=== PATIENT | male | born 1950 | race African-American/Black ===

== ENCOUNTER 2017-06-07 10:22 | Inpatient (IN) ==
--- NOTE | 2017-06-07 11:13 | CT Report ---
CT head/brain wo con Indication: Left facial droop Comparison: None Technique: Multiple axial tomographic images of the brain were obtained without the use of intravenous contrast. Findings: Midline structures are nondisplaced. There is no convincing evidence of acute intracranial hemorrhage . No convincing evidence of hydrocephalus. Moderate periventricular and subcortical hypoattenuation noted which is nonspecific but consistent with chronic microvascular ischemic change. Demyelinating process and vasculitis less likely considerations. Mild global volume loss present. There is subtle loss of rosado-white matter differentiation within the bilateral frontal location. Old lacunar infarcts involving the bilateral thalamus and left caudate. Age-indeterminate lacunar infarct within the lucas radiata of the left frontal lobe. Senescent mineralization of the bilateral basal ganglia. Atherosclerotic calcifications demonstrated. The visualized paranasal sinuses and bilateral mastoid air cells are essentially clear. IMPRESSION: No acute intracranial hemorrhage demonstrated. There is subtle loss of rosado-white matter differentiation within the bilateral frontal location. This could be related to motion artifact or sequela of recent infarct. Age-indeterminate lacunar infarct within the lucas radiata of the left frontal lobe. Consider MRI of the brain for further evaluation of these findings. Probable chronic microvascular ischemic change, volume loss, and old lacunar infarcts of bilateral thalami and left caudate. The CT exam was performed using one or more of the following dose reduction techniques: Automated exposure control, adjustment of the mA and/or kV according to patient size, or use of iterative reconstruction technique. PROCEDURE INTERPRETED AT [facility] DEPARTMENT OF RADIOLOGY Final Report Signed by: Dr James Melo
--- NOTE | 2017-06-07 11:26 | Emergency Department Note ---
Radha Del Cid Hilary, am scribing for, and in the presence of, Brendan Dial MD 10:53. Jayro Del Cid Phillip K, MD, personally performed the services described in this documentation, ascribed by Minerva Garcia in my presence, and it is both accurate and complete . Arrival - Arrival Chief Complaint: Neuro Stated Complaint: possible stroke,mouth drawed ED Nursing Triage Note: PT C/O FACIAL DROOP TO LEFT SIDE OF FACE SINCE LAST WEDNESDAY WITH SLURRED SPEECH. OBVIOUS FACIAL DROOP NOTED BUT SMILE AND RAISING OF EYE BROWS ARE SYMMETRICAL. PT DENIES WEAKNESS TO OTHER PARTS OF BODY. PT IS AMBULATORY. Mode of Arrival: Ambulatory Limitations: No Limitations Source: Patient, RN Notes Reviewed Time Seen by Provider: 06/07/17 10:45 - History of Present Illness HPI Narrative: Pt is a 67 y/o male presenting to the ED with c/o possible stroke which onset 6 days ago. Pt states that he took a nap with headphones in and woke up with with slurred speech and right facial droop. Pt denies any pain and states that his speech has gotten better but his face is still drooped. No other complaints or problems stated in the ED. Onset (ago): day(s) Consistency: constant Severity: mild Severity scale (1-10): 1 Allergies/Adverse Reactions: Allergies Allergy/AdvReac Type Severity Reaction Status Date / Time No Known Allergies Allergy Verified 06/07/17 10:30 Home Medications: Home Medications Medication Instructions Recorded Confirmed Type Aspirin EC Tab 81 mg PO DAILY #90 tablet 01/27/17 06/07/17 Rx Atenolol/Chlorthalidone 50-25 1 tablet PO DAILY #30 tablet 01/27/17 06/07/17 Rx [Tenoretic 50-25] Review of System - Review of System 12 point system: reviewed and no additional remarkable complaints except as stated - Review of System Constitutional: Absent: fever Head/Ears/Nose/Throat: Present: other (facial droop, slurred speech. ) Neurological: Present: other (possible stroke) Medical,Surgical,& Family Hx - Medical History Cardio: History of: Hypertension - Surgical History Neurologic Surgeries: Patient denies: Neurologic Surgery - Social History Smoking Status: Never smoker Frequency of Alcohol Use: None Type of Drug Use: None Exam Vital Signs: Vital Signs Temperature 97.0 F L 06/07/17 10:46 Pulse Rate 48 L 06/07/17 10:46 Respiratory Rate 18 06/07/17 10:46 Blood Pressure 166/99 06/07/17 10:46 O2 Sat by Pulse Oximetry 100 06/07/17 10:27 - General General appearance: alert, in no apparent distress - Head Head exam: Present: atraumatic, normocephalic - Eye Eye exam: Present: normal appearance, PERRL, EOMI - ENT ENT exam: Present: mucous membranes moist, TM's normal bilaterally. Absent: mucous membranes dry - Neck Neck exam: Present: full ROM, trachea midline. Absent: tenderness - Chest Chest inspection: Present: symmetric chest wall rise. Absent: tenderness - Respiratory Respiratory exam: Present: normal lung sounds bilaterally. Absent: respiratory distress - Cardiovascular Cardiovascular exam: Present: normal rhythm, bradycardia, normal heart sounds. Absent: regular rate, murmur, rubs, gallop - Abdominal Exam Abdominal exam: Present: soft, normal bowel sounds. Absent: distention, tenderness - Extremities Exam Extremities exam: Present: full ROM. Absent: tenderness, pedal edema - Back Exam Back exam: Present: full ROM. Absent: tenderness - Neurological Exam Neurological exam: Present: alert, oriented X3. Absent: CN II-XII intact ( Patient has what appears to be a partial right central facial nerve paralysis. At rest it appears to droop on the right side however when he smiles it appears symmetrical. There is no forehead involvement.), motor sensory deficit - Psychiatric Psychiatric exam: Present: normal affect, normal mood - Skin Skin exam: Present: warm, dry, intact, normal color. Absent: rash Course Course Narrative: Patient discussed with the hospitalist. Results - Labs CBC & BMP: 06/07/17 11:42 06/07/17 11:42 Lab Results: I have reviewed the patients labs Labs: Laboratory Tests 06/07/17 06/07/17 11:42 11:42 WBC 4.8 Hgb 10.6 L Hct 32.1 L Plt Count 253 Lymph # (Auto) 1.3 L Sodium 140 Potassium 4.3 Chloride 112 H Carbon Dioxide 20 L BUN 61 H Creatinine 4.50 H ALT 15 L Total Protein 7.2 Globulin 3.7 H Albumin/Globulin Ratio 0.9 L - EKG EKG results: interpreted by SABI (Sinus bradycardia, LVH with strain pattern) - Diagnostic Findings Procedure: CT: report reviewed by me (HEAD: No acute intracranial hemorrhage demonstrated. There is subtle loss of rosado-white matter differentiation within the bilateral frontal location. This could be related to motion artifact or sequela of recent infart. Age-indeterminate lacunar infarct within the lucas radiata of the left frontal lobe. Consider MRI of the brain for further evaluation of these findings. Probable chronic microvascular ischemic change, volume loss, and old lacunar infarcts of bilateral thalami and left caudate. 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
--- NOTE | 2017-06-07 11:51 | EKG Report ---
Stationary ECG Study [facility] ER Test Date: 06/07/2017 11:49:59 AM Pat Name: SERA PADILLA Department: Room: Gender: M Data Sciences Director: : 1950 Requested by: Brendan Ballard Order Number: [id number] Reading MD: MICHELLE COLÓN Intervals [place] Rate: 48 P: 49 AR: 199 QRS: -13 QRSD: 97 T: -56 QT: 487 QTc: 454 Interpretive Statements SINUS BRADYCARDIA at 48 bpm LEFT VENTRICULAR HYPERTROPHY AND ST-T CHANGE EARLY REPOLARIZATION Electronically Signed On 06-08-17 08:10:23 CDT by MICHELLE COLÓN [email or web address]
[2017-06-07 12:03] LABS: Basophils % 0.8 % (0.0-0.8); Eosinophils # 0.1 10*3/uL (0.0-0.87); Eosinophils % 2.1 % (0.00-10.9); Hematocrit 32.1 VOL% (42.0-52.0); Hemoglobin 10.6 GM/DL (14.0-18.0); Immature Granulocytes % 0.4 %; Immature Granulocytes Absolute 0.02 #; Lymphocytes # 1.3 10*3/uL (1.4-4.0); Lymphocytes % 27.7 % (21.2-54.2); Mean Corpuscular Hemoglobin 30 PG (27-34); Mean Corpuscular Volume 90.9 FL (87-102); Mean Platelet Volume 10.5 FL (9.6-12.0); Monocytes # 0.5 10*3/uL (0.11-0.8); Monocytes % 10.3 % (1.7-12.7); Neutrophils # 2.8 10*3/uL (1.4-7.4); Neutrophils % 58.7 % (38.7-73.9); Platelet Count 253 T/CUMM (130-400); Red Blood Count 3.53 MC/CUMM (3.8-5.5); Red Cell Distribution Width 14.3 % (9.3-17.3); White Blood Count 4.8 T/CUMM (4-12)
[2017-06-07 12:35] LABS: Alanine Aminotransferase 15 U/L (16-61); Albumin 3.5 G/DL (3.4-5.0); Alkaline Phosphatase 82 U/L (45-117); Aspartate Amino Transferase 18 U/L (0-37); Bilirubin,Total < 0.39 MG/DL (0.2-1.0); Blood Urea Nitrogen 61 MG/DL (7-18); Calcium 8.7 MG/DL (8.5-10.1); Glucose 85 MG/DL (74-106); Osmolality,Calculated 294.4 MOS/KG (273-304); Potassium 4.3 MMOL/L (3.5-5.1); Sodium 140 MMOL/L (136-145); Total Protein 7.2 G/DL (6.4-8.3)
--- NOTE | 2017-06-07 14:23 | Hospitalist History & Physical ---
<Ra Jain - Last Filed: 06/07/17 14:36> Assessment and Plan - Time spent with patient Time spent with patient: Greater than 30 minutes (1) Transient cerebral ischemia Status: Acute Assessment and plan: Head CT shows lacunar infarct of indeterminate age. Patient is already on aspirin. Will obtain an MRI of the brain and head. Neurology has been consulted. Current Visit: Yes (2) Hypertension Status: Acute Assessment and plan: Continue home medications. Add as needed antihypertensives. Current Visit: Yes (3) Acute kidney injury Status: Acute Assessment and plan: Gentle IV fluids. Current Visit: Yes History of Present Illness Chief complaint: CVA History of present illness: Mr. Espinoza is a 67 year old male with past medical history significant for hypertension who comes in today complaining of facial droop and right-sided weakness with onset last Wednesday. Patient reports that he first noticed these changes last Wednesday or Wednesday when he believed to have had a stroke. He states that he does not have a PCP but does take medication for hypertension that he received in the ED approximately 2 months ago. Patient states that he has no residual effects from this perceived stroke outside of the right-sided facial droop and the right arm weakness. On exam, the patient does have noticeable facial droop and his right hand is slightly weaker than the left. His speech is audible and intelligible though it is a bit slurred. Patient denies headache, syncopal episodes, palpitations, chest pain, nausea vomiting, numbness or tingling. His CT shows evidence of lacunar infarct of indeterminate age. Lab work at the time of admission is remarkable for BUN 61 creatinine 4.5. Case has been discussed with Dr. Allen and the patient will be admitted for further evaluation and treatment. We will consult neurology. Patient is a full code. Home meds have been reviewed and reconciled. Home Medications Medication Instructions Recorded Confirmed Type Aspirin EC Tab 81 mg PO DAILY #90 tablet 01/27/17 06/07/17 Rx Atenolol/Chlorthalidone 50-25 1 tablet PO DAILY #30 tablet 01/27/17 06/07/17 Rx [Tenoretic 50-25] Allergies Allergy/AdvReac Type Severity Reaction Status Date / Time No Known Allergies Allergy Verified 06/07/17 10:30 Medical,Surgical,& Family Hx - Medical History Cardio: History of: Hypertension Neurology: History of: TIA Rheumatology: History of;: Gout - Surgical History Neurologic Surgeries: Patient denies: Neurologic Surgery Abdominal Surgeries: Patient denies: Abdominal Surgery Reproductive Surgeries: Patient denies;: Genitourinary Surgery - Family History Family History: Reports;: Family Cancer (Dad), Family Diabetes (Sister, mom, niece), Family Heart Disease (mom, sister), Family Stroke (niece) - Social History Smoking Status: Never smoker Frequency of Alcohol Use: Frequently Type of Drug Use: None Exam - Constitutional Vitals: Period Temp Pulse Resp BP Sys/Rodriguez Pulse Ox Last 24 Hr 97.0 F-97.5 F 48-127 18-18 166-183/95-99 98-100 Results - Labs CBC & BMP: 06/07/17 11:42 06/07/17 11:42 Quality Measures - Stroke Onset of Symptoms Date: 06/02/17 Onset of Symptoms Time: 18:00 <Dori Allen - Last Filed: 06/07/17 16:10> History of Present Illness History of present illness: Mr. Espinoza is a 67 year old male with a history of HTN snd a family of stroke who presents with right sided facial weakness and swallowing problems.Carotid dopplers showed Diffuse calcified atheromatous disease. 60-79% diameterstenosis right ICA origin. No hemodynamically significant stenosis on the left. Patient was seen, examined and discussed with the DRAY DRIVER. Plan Cardiac enzymes Echo ASA, statins Neuro, PT/ST/OT consult UA Continue current stroke protocol. IVF renal USS BMP in am Exam - Constitutional Vitals: Period Temp Pulse Resp BP Sys/Rodriguez Pulse Ox Last 24 Hr 97.0 F-97.5 F 48-127 18-18 166-183/95-99 98-100 Results - Labs CBC & BMP: 06/07/17 11:42 06/07/17 11:42
[2017-06-07] MEDS ORDERED: LABETALOL 20 MG/4 ML SYRINGE IV PRN (14:27)
[2017-06-07 14:57] LABS: Cholesterol 175 MG/DL (50-200); HDL Cholesterol 51 MG/DL (40-60); Risk Ratio 3.43; Triglycerides 112 MG/DL (2-150); Troponin I Only < 0.015 NG/ML (0.00-0.045); VLDL CHOLESTEROL 22.4 MG/DL
[2017-06-07] MEDS: ASPIRIN EC 81 MG TABLET PO SCH (15:34)
[2017-06-07] MEDS: ATENOLOL/CHLORTHALIDONE 50-25 MG TABLET PO SCH (15:34)
[2017-06-07] MEDS: ENOXAPARIN 30 MG/0.3 ML SYRINGE SUBCUT SCH (15:34)
--- NOTE | 2017-06-07 15:56 | Ultrasound Report ---
US carotid duplex BI Indication: Stroke. CAROTID ULTRASOUND Comparison: None. Findings: Grayscale, color Doppler and pulsed Doppler interrogation of the carotid and vertebral arteries performed. Severity of stenosis based on flow velocity measurements using NASCET criteria. Distal right ICA diameter: 5.0 mm Distal left ICA diameter: 3.4 mm Peak systolic flow velocities in centimeters per second are as follows: Right: CCA: 68 cm/s Proximal ICA: 83 Distal ICA: 135 ICA/CCA ratio: 2.0 Left: CCA: 66 cm/s Proximal ICA: 48 Distal ICA: 89 ICA/CCA ratio: 1.3 External carotid arteries: Both are patent with antegrade flow. Vertebral arteries: Both are patent with antegrade flow. Grayscale and color Doppler images: Scattered and significant areas of focal plaque deposition identified, with normal color Doppler flow present. Pulse Doppler waveform interrogation: No significant spectral broadening. Impression: Diffuse calcified atheromatous disease. 60-79% diameter stenosis right ICA origin. No hemodynamically significant stenosis on the left. PROCEDURE INTERPRETED AT [facility] DEPARTMENT OF RADIOLOGY Final Report Signed by: Eleazar Raman M.D.
--- NOTE | 2017-06-07 17:15 | Magnetic Resonance Report ---
History: Facial droop. Right-sided weakness Date: 06/07/2017 Study: MRI brain without contrast Comparison exam: No previous MRI brain available for comparison The brain was imaged in 3 planes on the 1.2 Miriam open magnet without IV contrast, to include diffusion, T2, FLAIR, gradient echo, and T1-weighted sequences. No IV contrast was given. The exam was performed on the day of admission. The ventricles are midline in position without evidence of hydrocephalus. There is no Chiari I malformation. There is no gross mediastinal mass. There is a 10 to 12 mm area of restricted diffusion compatible with acute ischemia in the lucas radiata on the left, compatible with acute ischemia between 6 hours and 4 days old. There is no acute hemorrhage. There are some scattered punctate foci of hypointense gradient echo signal compatible with hemosiderin from scattered microhemorrhage of a remote nature bilaterally in the bethany, thalami, and globus pallidus regions, as well as in the lucas radiata bilaterally. There is no area of mass effect. There is a moderate amount of patchy increased FLAIR and T2 signal in the periventricular white matter without mass effect compatible with changes of small vessel disease. Moderate changes of small vessel disease are also noted in the bethany. There are some areas of chronic lacunar infarction in the thalami and putamen bilaterally. There is no extra-axial hematoma. There is no obvious cerebellopontine angle mass. There is a normal flow void in the superior sagittal sinus. There is no gross flow abnormality in the [place] of area. Impression: Area of acute ischemia in the lucas radiata on the left. No acute hemorrhage. Evidence of remote scattered microhemorrhage in the bethany and basal ganglia regions as well as in the lucas radiata bilaterally. PROCEDURE INTERPRETED AT [facility] DEPARTMENT OF RADIOLOGY Final Report Signed by: Dr. Deidre Salcido
[2017-06-07] MEDS: hydrALAZINE 10 MG TABLET PO PRN (18:05)
[2017-06-07] MEDS: SODIUM CHLORIDE 0.45% 1,000 ML IV SCH (18:05)
--- NOTE | 2017-06-07 20:36 | Ultrasound Report ---
US renal Bilateral Indication: Renal failure. Comparison: None. Technique: Using a transcutaneous probe, multiple grayscale and color Doppler images of the right and left kidney were captured and stored. Findings: The right kidney measures 9.6 cm in length. The left kidney measures 9.5 cm. in length. The left kidney demonstrates rounded to slightly oval areas of anechoic to hypoechoic echotexture within well-defined wall compatible with cysts. The largest of these measures 1.4 x 1.7 x 1.1 cm. Additionally, each of the renal cortices is hyperechoic and atrophy of the renal cortex is suggested bilaterally. Impression: 1. At least one, probably multiple left renal cysts are present. 2. Each renal cortex appears atrophied and demonstrates hyperechoic echotexture which is a nonspecific finding but can reflect sequelae of medical renal disease. 06/07/2017 8:32 PM PROCEDURE INTERPRETED AT [facility] DEPARTMENT OF RADIOLOGY Final Report Signed by: Dr. Vasiliy Olivera
[2017-06-07] MEDS ORDERED: ATORVASTATIN 40 MG TABLET PO SCH (21:00)
[2017-06-07 22:55] LABS: Apearance,Urine CLEAR (Clear); Bilirubin,Urine Negative (Negative); Blood, Urine Small mg/dL (Negative); Glucose,Urine (UA) Negative (Negative); Ketones,Urine Negative (Negative); Mucus,Urine Occasional /LPF (Occasional); Nitrite,Urine Negative (Negative); Protein,Urine 30 MG/DL; RBC,Urine 1 /HPF (0-4); Renal Epithelial Cells,Urine Occasional /HPF (<1); Urine Color Straw (Yellow); Urine Urobilinogen < 2.0 EU/DL (0.2-1.0); WBC,Urine <1 /HPF (0-6)
[2017-06-08 05:03] LABS: Basophils % 0.6 % (0.0-0.8); Eosinophils # 0.1 10*3/uL (0.0-0.87); Eosinophils % 2.9 % (0.00-10.9); Hematocrit 32.6 VOL% (42.0-52.0); Hemoglobin 10.7 GM/DL (14.0-18.0); Immature Granulocytes % 0.4 %; Immature Granulocytes Absolute 0.02 #; Lymphocytes # 1.7 10*3/uL (1.4-4.0); Lymphocytes % 34.4 % (21.2-54.2); Mean Corpuscular HGB Conc 32.8 GM/DL (32-36); Mean Corpuscular Hemoglobin 30 PG (27-34); Mean Corpuscular Volume 91.3 FL (87-102); Mean Platelet Volume 11.1 FL (9.6-12.0); Monocytes # 0.5 10*3/uL (0.11-0.8); Neutrophils # 2.5 10*3/uL (1.4-7.4); Neutrophils % 51.7 % (38.7-73.9); Platelet Count 265 T/CUMM (130-400); Red Blood Count 3.57 MC/CUMM (3.8-5.5); Red Cell Distribution Width 14.5 % (9.3-17.3); White Blood Count 4.9 T/CUMM (4-12)
[2017-06-08 05:16] LABS: Calcium 9.1 MG/DL (8.5-10.1); Osmolality,Calculated 291.4 MOS/KG (273-304); Potassium 4.3 MMOL/L (3.5-5.1)
[2017-06-08] MEDS: SODIUM CHLORIDE 0.45% 1,000 ML IV SCH (09:23)
[2017-06-08] MEDS: ASPIRIN EC 81 MG TABLET PO SCH (09:26)
[2017-06-08] MEDS: ATENOLOL/CHLORTHALIDONE 50-25 MG TABLET PO SCH (09:28)
--- NOTE | 2017-06-08 11:04 | Hospitalist Progress Note ---
Assessment and Plan (1) Acute ischemic stroke Status: Acute Assessment and plan: with right facial weakness and swallowing difficulties. MRI showed: Area of acute ischemia in the lucas radiata on the left. No acute hemorrhage. Evidence of remote scattered microhemorrhage in the bethany and basal ganglia regions as well as in the lucas radiata bilaterally. Carotid showed :Diffuse calcified atheromatous disease. 60-79% diameter stenosis right ICA origin. No hemodynamically significant stenosis on the left. Plan continue with ASA and statin Neuro to see Vascular has also been consulted. Continue PT/OT/ST Patient doesnt mind going to [facility] from here- plant senior manager consult Current Visit: Yes (2) Carotid stenosis, right Status: Acute Assessment and plan: Doppler showed :Diffuse calcified atheromatous disease. 60-79% diameter stenosis right ICA origin. No hemodynamically significant stenosis on the left. plan CTA of head and neck Vascular consult ASA plus Statin Current Visit: Yes (3) Hypertension Status: Acute Assessment and plan: will monitor and control Current Visit: Yes (4) Acute kidney injury Status: Acute Assessment and plan: Improving with IVF BMP in am continue to avoid nephrotoxics Current Visit: Yes (5) History of gout Status: Acute Assessment and plan: will get uric acid level Current Visit: Yes Hospitalist: Subjective Interval history: Patient seen this am, No new complaints. MRI showed Area of acute ischemia in the lucas radiata on the left.Carotid doppler showed 60-79% diameter stenosis right ICA origin. Exam - Constitutional Vitals: Period Temp Pulse Resp BP Sys/Rodriguez Pulse Ox Last 24 Hr 96.5 F-97.6 F 51-127 18-22 147-186/77-97 94-98 General appearance: no acute distress - Head Head exam: Present: normal inspection - Respiratory Respiratory exam: Present: clear to auscultation bilaterally - Cardiovascular Cardiovascular exam: Present: regular rate and rhythm - GI/Abdominal GI/Abdominal exam: Present: normal bowel sounds - Extremities Exam Extremities exam: Present: normal inspection - Neurological Exam Neurological exam: Present: alert, oriented X3, other (right facial weakness) Results - Labs CBC & BMP: 06/08/17 03:13 06/08/17 03:13 Lab Results: I have reviewed the past 24 hour labs Quality Measures - Stroke Onset of Symptoms Date: 06/02/17 Onset of Symptoms Time: 18:00
--- NOTE | 2017-06-08 14:41 | Neurology Consult Note ---
History of Present Illness History of present illness: Mr. Espinoza is a 67 year old right-handed -Burm[place] gentleman with past medical history significant for hypertension who was admitted to [facility] with complaints of right facial droop and right-sided weakness with onset last Wednesday. Patient reports that he first noticed these changes last Wednesday when he believed to have had a stroke. He states that he does not have a PCP but does take medication for hypertension that he received in the ED approximately 2 months ago. Patient denies headache, syncopal episodes, palpitations, chest pain, nausea vomiting, numbness or tingling. MRI of the brain revealed acute infarct in the left basal ganglia/subcortical region. Lab work at the time of admission is remarkable for BUN 61 creatinine 4.5. Patient has speech difficulties which are mild too. He is able to get up and walk by himself. Carotid ultrasound revealed right ICA stenosis of 50-79%. Lipid panel is within normal limits Home Medications Medication Instructions Recorded Confirmed Type Aspirin EC Tab 81 mg PO DAILY #90 tablet 01/27/17 06/07/17 Rx Atenolol/Chlorthalidone 50-25 1 tablet PO DAILY #30 tablet 01/27/17 06/07/17 Rx [Tenoretic 50-25] Allergies Allergy/AdvReac Type Severity Reaction Status Date / Time No Known Allergies Allergy Verified 06/07/17 10:30 12 point system: reviewed and no additional remarkable complaints except as stated Medical,Surgical,& Family Hx - Medical History Cardio: History of: Hypertension Psychological: History of: Schizophrenia Neurology: History of: TIA Rheumatology: History of;: Gout - Surgical History Neurologic Surgeries: Patient denies: Neurologic Surgery Abdominal Surgeries: Patient denies: Abdominal Surgery Reproductive Surgeries: Patient denies;: Genitourinary Surgery - Family History Family History: Reports;: Family Cancer (Dad), Family Diabetes (Sister, mom, niece), Family Heart Disease (mom, sister), Family Stroke (niece) - Social History Smoking Status: Never smoker Frequency of Alcohol Use: Frequently Type of Drug Use: None Exam - Constitutional Vitals: Period Temp Pulse Resp BP Sys/Rodriguez Pulse Ox Last 24 Hr 96.5 F-97.6 F 51-62 20-22 147-186/77-114 94-98 Exam: GENERAL: Patient is in no acute distress. NECK: Neck is supple. There is no JVD. No carotid bruits present. No thyroid masses. CVS: First and second heart sounds are normal. There is no S3 present. Regular rate and rhythm. RESPIRATORY: Lungs are clear to auscultation without any rales or rhonchi. ABDOMEN: Soft and non-tender. Bowel sounds are present. There is no hepatosplenomegaly. EXT: There is no palpable edema. Peripheral pulses are present. Skin: No rashes Central Nervous system: General: Alert, awake and Oriented Speech: Fluent with mild dysarthria Comprehension: Intact and normal Facial expressions: Normal Cranial Nerves: CN1/Olfactory: Normal CN II/ Optic: Normal, Visual Puente unreliable CN III, and : CONSUELO & EOMI CN V: Normal & intact CN VII: Right central facial weakness CNVIII: Normal CN XI/X/XI/XII: Intact and Normal Motor: Bulk and Tone is normal. Strength in the right 4/5 Strength in the left 5/5 Sensory: Grossly intact for all the modalities of PP, LT and temp sense Reflexes: 1+ and symmetrical Cerebellar function: Normal finger to nose and heel to guo testing. Toes: Equivocal Gait: Able to get up and walk without assistance. Results - Labs CBC & BMP: 06/08/17 03:13 06/08/17 03:13 Assessment and Plan (1) Acute CVA (cerebrovascular accident) Status: Acute Assessment and plan: Continue aspirin for now Lipitor 10 mg p.o. daily Schedule outpatient PT, OT and ST Current Visit: Yes (2) Carotid stenosis, right Status: Acute Assessment and plan: CT angiogram carotid Thank you for the consult Current Visit: Yes Specialty Discharge - Follow Up or Referrals Follow up with: Dominique Sky MD [Physician] - 2 Weeks Eladio Jones MD [Physician] - 1 Month
[2017-06-08] MEDS: ENOXAPARIN 30 MG/0.3 ML SYRINGE SUBCUT SCH (14:58)
--- NOTE | 2017-06-08 17:47 | Vascular Surgery Consult Note ---
History of Present Illness Chief complaint: cva with carotid stenosis History of present illness: Mr. Espinoza is a 67 year old male Mr. Espinoza is a 67-year-old man admitted with a left lacunar cerebrovascular accident but had delayed coming to the hospital for approximately 6 days. He is stable and getting along reasonably well and an ultrasound is indicated a moderate right carotid cyst but no significant left carotid stenosis. Patient has no previous histories of these but has untreated hypertension up until recently. At this point I agree with Dr. Sanchez much recommendation for CT angiogram and I will review that and determine if there is any significant carotid disease that she that would require intervention Home Medications Medication Instructions Recorded Confirmed Type Aspirin EC Tab 81 mg PO DAILY #90 tablet 01/27/17 06/07/17 Rx Atenolol/Chlorthalidone 50-25 1 tablet PO DAILY #30 tablet 01/27/17 06/07/17 Rx [Tenoretic 50-25] Allergies Allergy/AdvReac Type Severity Reaction Status Date / Time No Known Allergies Allergy Verified 06/07/17 10:30 Medical,Surgical,& Family Hx - Medical History Cardio: History of: Hypertension Psychological: History of: Schizophrenia Neurology: History of: TIA Rheumatology: History of;: Gout - Surgical History Neurologic Surgeries: Patient denies: Neurologic Surgery Abdominal Surgeries: Patient denies: Abdominal Surgery Reproductive Surgeries: Patient denies;: Genitourinary Surgery - Family History Family History: Reports;: Family Cancer (Dad), Family Diabetes (Sister, mom, niece), Family Heart Disease (mom, sister), Family Stroke (niece) - Social History Smoking Status: Never smoker Frequency of Alcohol Use: Frequently Type of Drug Use: None Exam - Constitutional Vitals: Period Temp Pulse Resp BP Sys/Rodriguez Pulse Ox Last 24 Hr 96.7 F-97.6 F 52-62 18-22 147-186/77-114 94-99 Quality Measures - Stroke Onset of Symptoms Date: 06/02/17 Onset of Symptoms Time: 18:00 Results - Labs CBC & BMP: 06/08/17 03:13 06/08/17 03:13 Specialty Discharge - Follow Up or Referrals Follow up with: Eladio Jones MD [Physician] - 1 Month Dominique Sky MD [Physician] - 2 Weeks
--- NOTE | 2017-06-08 19:01 | Nephrology Consult Note ---
History of Present Illness Chief complaint: Chronic kidney disease History of present illness: Mr. Espinoza is a 67 year old male patient with history of hypertension is now status post CVA with right-sided weakness serum creatinine is noted to be 3.8. Nephrology is been consulted for renal issues. Renal ultrasound today showed some increased echotexture. The gentleman denies history of NSAID use. There is been no dysuria or hematuria reported. Carotid Dopplers showed diffuse atherosclerotic processes. Home Medications Medication Instructions Recorded Confirmed Type Aspirin EC Tab 81 mg PO DAILY #90 tablet 01/27/17 06/07/17 Rx Atenolol/Chlorthalidone 50-25 1 tablet PO DAILY #30 tablet 01/27/17 06/07/17 Rx [Tenoretic 50-25] Allergies Allergy/AdvReac Type Severity Reaction Status Date / Time No Known Allergies Allergy Verified 06/07/17 10:30 Medical,Surgical,& Family Hx - Medical History Cardio: History of: Hypertension Psychological: History of: Schizophrenia Neurology: History of: TIA Rheumatology: History of;: Gout - Surgical History Neurologic Surgeries: Patient denies: Neurologic Surgery Abdominal Surgeries: Patient denies: Abdominal Surgery Reproductive Surgeries: Patient denies;: Genitourinary Surgery - Family History Family History: Reports;: Family Cancer (Dad), Family Diabetes (Sister, mom, niece), Family Heart Disease (mom, sister), Family Stroke (niece) - Social History Smoking Status: Never smoker Frequency of Alcohol Use: Frequently Type of Drug Use: None Review of Systems Constitutional: fatigue, no fever(s) Respiratory: no dyspnea, no hemoptysis Gastrointestinal: no abdominal pain, no bloating Exam - Vital Signs Vital signs: Period Temp Pulse Resp BP Sys/Rodriguez Pulse Ox Last 24 Hr 96.7 F-97.6 F 52-62 18-22 147-186/77-114 94-99 - General Appearance General appearance: well-developed, well-nourished EENT: ATNC Neck: supple Respiratory: clear Cardiology: no edema, regular rate, regular rhythm Gastrointestinal: normoactive bowel sounds Neurologic: alert and oriented x3, facial droop (Dysarthria) Musculoskeletal: no clubbing Psychiatric: mood/affect appropriate Results - Labs CBC & BMP: 06/08/17 03:13 06/08/17 03:13 Assessment and Plan (1) Hypertension Status: Chronic Current Visit: Yes Qualifiers: Hypertension type: essential hypertension Qualified Code(s): I10 - Essential (primary) hypertension (2) Acute kidney injury Status: Acute Assessment and plan: Renal ultrasound noted. Avoid nephrotoxic agents. Daily BMP. Strict I's and O's. Current Visit: Yes (3) Carotid stenosis Status: Acute Current Visit: Yes (4) History of gout Status: Chronic Current Visit: Yes (5) Acute CVA (cerebrovascular accident) Status: Acute Current Visit: Yes Specialty Discharge - Follow Up or Referrals Follow up with: Eladio Jones MD [Physician] - 1 Month Dominique Sky MD [Physician] - 2 Weeks
--- NOTE | 2017-06-08 20:32 | ECHO Report ---
Franck Espinoza Exam Date: 06/08/2017 09:28 Referring Physician: Technologist: Baylee Steel MARTHA Age: 67 Ht (in): 73 Wt (lb): 181 Gender: M Exam Location: [facility] Echo Indications: Transient cerebral ischemia, Essential (primary) hypertension, Acute kidney injury, Right sided weakness, Facial droop BP: 147 / 77 HR: 51 Rhythm: Sinus Technical Quality: Good IMPRESSIONS Normal LV systolic function, ejection fraction 60%. Grade 1/4 diastolic dysfunction. Mild mitral, aortic, tricuspid and pulmonic regurgitation. No clear evidence of valvular vegetation or cardiac thrombus. MEASUREMENTS (Male / Female) Normal Values 2D ECHO LV Diastolic Diameter PLAX 5.1 cm 4.2 - 5.9 / 3.9 - 5.3 cm LV Systolic Diameter PLAX 2.9 cm LV Fractional Shortening PLAX 42.9 % IVS Diastolic Thickness 0.9 cm 0.6 - 1.0 / 0.6 - 0.9 cm LVPW Diastolic Thickness 0.9 cm 0.6 - 1.0 / 0.6 - 0.9 cm RV Internal Dim ED PLAX 4.1 cm Aortic Root Diameter 3.6 cm LA Systolic Diameter LX 3.3 cm 3.0 - 4.0 / 2.7 - 3.8 cm DOPPLER TR Peak Velocity 257.0 cm/s TR Peak Gradient 26.4 mmHg FINDINGS Left Ventricle Normal left ventricular cavity size. Normal left ventricular wall thickness. Left ventricular ejection fraction is estimated at 60 %. Right Ventricle The right ventricle is normal in size and function. Right Atrium The right atrium is normal in size. Left Atrium The left atrium is normal in size. Mitral Valve Mildly thickened mitral valve. Mild mitral annular calcification. Mild mitral valve regurgitation. Aortic Valve Mild aortic valve sclerosis. Mild aortic valve regurgitation. Tricuspid Valve Morphologically normal tricuspid valve. Mild tricuspid valve regurgitation. Tricuspid regurgitation velocities suggest a PAP of 36 mmHg. Pulmonic Valve Morphologically normal pulmonic valve. Mild pulmonary valve regurgitation. Pericardium Normal pericardium without effusion. Aorta Normal ascending aorta dimension. Silvia Anderson MD (Electronically Signed) Final Date: 08 June 2017 20:30
[2017-06-08] MEDS: ACETYLCYSTEINE 600 MG CAPSULE PO SCH (21:19)
[2017-06-08] MEDS: ATORVASTATIN 10 MG TABLET PO SCH (21:19)
[2017-06-09 06:36] LABS: Basophils % 0.9 % (0.0-0.8); Eosinophils # 0.1 10*3/uL (0.0-0.87); Eosinophils % 2.7 % (0.00-10.9); Hemoglobin 10.2 GM/DL (14.0-18.0); Immature Granulocytes % 0.2 %; Immature Granulocytes Absolute 0.01 #; Lymphocytes # 1.4 10*3/uL (1.4-4.0); Mean Corpuscular HGB Conc 32.9 GM/DL (32-36); Mean Corpuscular Hemoglobin 30 PG (27-34); Mean Corpuscular Volume 91.4 FL (87-102); Mean Platelet Volume 10.5 FL (9.6-12.0); Monocytes # 0.5 10*3/uL (0.11-0.8); Monocytes % 11.6 % (1.7-12.7); Neutrophils # 2.3 10*3/uL (1.4-7.4); Neutrophils % 52.6 % (38.7-73.9); Platelet Count 242 T/CUMM (130-400); Red Blood Count 3.39 MC/CUMM (3.8-5.5); Red Cell Distribution Width 14.4 % (9.3-17.3); White Blood Count 4.4 T/CUMM (4-12)
[2017-06-09 07:12] LABS: Calcium 8.3 MG/DL (8.5-10.1); Osmolality,Calculated 292.4 MOS/KG (273-304); Potassium 4.2 MMOL/L (3.5-5.1)
--- NOTE | 2017-06-09 08:45 | Physician Query Form ---
CLICK EDIT DOCUMENT TO SELECT QUERY ANSWER --> OK --> SIGN Claudia Olivera RN, CCDS Certified Clinical Certified Wellness Program Coordinator W) [phone] (f) [phone] [email or web address] PROVIDERS: Make your selection(s) from the choices in EACH section by typing an "x" and enter comments in the comment section. Please use your independent medical judgment in providing your response. This request does not imply that any particular answer is desired or expected. CLINICAL INDICATORS: (Providers should not edit this section) The medical record indicates that the patient was admitted with a CVA, "MRI showed Area of acute ischemia in the lucas radiata on the left. Carotid doppler showed 60-79% diameter stenosis right ICA origin". Based on the above, could you clarify the appropriate diagnosis, if significant , that supports the above abnormalities and additional evaluation, monitoring, and/or treatment rendered: (x ) Stroke is due to " 60-79% diameter stenosis right ICA origin" ( ) Stroke is unrelated to " 60-79% diameter stenosis right ICA origin" ( ) Other, please specify: ( ) Clinically unable to determine COMMENTS: PLEASE ALSO DOCUMENT RESPONSE IN PROGRESS NOTES AND/OR DISCHARGE SUMMARY Use of terms such as suspected, likely, or probable (associated with a specific diagnosis that is being evaluated, monitored, or treated as if it exists) are acceptable and can be restated in the discharge summary if not ruled out. MTDD
[2017-06-09] MEDS: ENOXAPARIN 30 MG/0.3 ML SYRINGE SUBCUT SCH (09:15)
[2017-06-09] MEDS: ACETYLCYSTEINE 600 MG CAPSULE PO SCH ×2 (09:15→21:40)
[2017-06-09] MEDS: ASPIRIN EC 81 MG TABLET PO SCH (09:15)
[2017-06-09] MEDS: ATENOLOL/CHLORTHALIDONE 50-25 MG TABLET PO SCH (09:15)
[2017-06-09] MEDS: hydrALAZINE 10 MG TABLET PO PRN (09:17)
--- NOTE | 2017-06-09 11:33 | Hospitalist Progress Note ---
Assessment and Plan (1) Acute ischemic stroke Status: Acute Assessment and plan: with right facial weakness and swallowing difficulties. MRI showed: Area of acute ischemia in the lucas radiata on the left. No acute hemorrhage. Evidence of remote scattered microhemorrhage in the bethany and basal ganglia regions as well as in the lucas radiata bilaterally. Carotid showed :Diffuse calcified atheromatous disease. 60-79% diameter stenosis right ICA origin. No hemodynamically significant stenosis on the left. [facility]eruo and Vascular are following. Plan continue with ASA and statin Continue PT/OT/ST, follow Neuro's recommendations Patient doesnt mind going to [facility] from here- retail pharmacy manager consult Current Visit: Yes (2) Carotid stenosis, right Status: Acute Assessment and plan: Doppler showed :Diffuse calcified atheromatous disease. 60-79% diameter stenosis right ICA origin. No hemodynamically significant stenosis on the left. Patient is unable do a CT angiogram due to poor renal status. plan Continue ASA plus Statin Follow Vascular's plan Current Visit: Yes (3) Hypertension Status: Chronic Assessment and plan: will add hydralazine 25mg tid, follow response Current Visit: Yes Qualifiers: Hypertension type: essential hypertension Qualified Code(s): I10 - Essential (primary) hypertension (4) Acute kidney injury Status: Acute Assessment and plan: on IVF, Nephrology is following. BMP in am continue to avoid nephrotoxics Current Visit: Yes (5) History of gout Status: Chronic Assessment and plan: uric acid level-10.8 Consider low dose Allopurinol vs Uloric on dc, patient is not having an acute crisis right now. Current Visit: Yes Hospitalist: Subjective Interval history: Patient seen this with no new complaints. He is unable to get a CT angiogram due to his renal status. Nephrology and Vascular are following. Exam - Constitutional Vitals: Period Temp Pulse Resp BP Sys/Rodriguez Pulse Ox Last 24 Hr 96.7 F-98.4 F 52-58 18-22 155-189/75-114 93-99 General appearance: no acute distress, other (rt facial weakness) - Respiratory Respiratory exam: Present: clear to auscultation bilaterally - Cardiovascular Cardiovascular exam: Present: regular rate and rhythm - GI/Abdominal GI/Abdominal exam: Present: normal bowel sounds - Extremities Exam Extremities exam: Present: other - Neurological Exam Neurological exam: Present: alert, oriented X3 Results - Labs CBC & BMP: 06/09/17 06:01 06/09/17 06:01 Lab Results: I have reviewed the past 24 hour labs Quality Measures - Stroke Onset of Symptoms Date: 06/02/17 Onset of Symptoms Time: 18:00 Specialty Discharge - Follow Up or Referrals Follow up with: Eladio Jones MD [Physician] - 1 Month Dominique Sky MD [Physician] - 2 Weeks
--- NOTE | 2017-06-09 14:13 | Neurology Progress Note ---
Neurology - PN : Subjective Interval history: Clinically patient seems to be doing okay. Unfortunately given his poor kidney function, CT angiogram cannot be done because of contrast. Dr. Quintana is falling from kidney standpoint. Definitely further clarification with arteriogram/angiogram is needed in order to make further decision regarding possibility of CEA. Dr. Echols is following Exam (Progress Note) - Constitutional Vitals: Period Temp Pulse Resp BP Sys/Rodriguez Pulse Ox Last 24 Hr 96.3 F-98.4 F 53-58 18-22 160-189/75-95 93-99 Exam: GENERAL: Patient is in no acute distress. NECK: Neck is supple. There is no JVD. No carotid bruits present. No thyroid masses. CVS: First and second heart sounds are normal. There is no S3 present. Regular rate and rhythm. RESPIRATORY: Lungs are clear to auscultation without any rales or rhonchi. ABDOMEN: Soft and non-tender. Bowel sounds are present. There is no hepatosplenomegaly. EXT: There is no palpable edema. Peripheral pulses are present. Skin: No rashes Central Nervous system: General: Alert, awake and Oriented Speech: Fluent with mild dysarthria Comprehension: Intact and normal Facial expressions: Normal Cranial Nerves: CN1/Olfactory: Normal CN II/ Optic: Normal, Visual Puente unreliable CN III, and : CONSUELO & EOMI CN V: Normal & intact CN VII: Right central facial weakness CNVIII: Normal CN XI/X/XI/XII: Intact and Normal Motor: Bulk and Tone is normal. Strength in the right 4/5 Strength in the left 5/5 Sensory: Grossly intact for all the modalities of PP, LT and temp sense Reflexes: 1+ and symmetrical Cerebellar function: Normal finger to nose and heel to guo testing. Toes: Equivocal Gait: Able to get up and walk without assistance. Results - Labs CBC & BMP: 06/09/17 06:01 06/09/17 06:01 Assessment and Plan (1) Acute CVA (cerebrovascular accident) Status: Acute Assessment and plan: This current infarct certainly is a lacunar syndrome and is not related to carotid artery stenosis which means carotid artery stenosis is asymptomatic at this time. Continue aspirin for now Add Plavix 75 mg daily Continue Lipitor 10 mg p.o. daily Schedule outpatient PT, OT and ST Current Visit: Yes (2) Carotid stenosis, right Status: Acute Assessment and plan: CT angiogram carotid cannot be done due to poor renal function Current Visit: Yes Quality Measures - Stroke Onset of Symptoms Date: 06/02/17 Onset of Symptoms Time: 18:00 Specialty Discharge - Follow Up or Referrals Follow up with: Eladio Jones MD [Physician] - 1 Month Dominique Sky MD [Physician] - 2 Weeks
--- NOTE | 2017-06-09 15:59 | Vascular Surgery Consult Note ---
Assessment and Plan (1) Carotid stenosis, right Status: Acute Assessment and plan: With the current level of renal insufficiency certainly a CT angiogram is felt not to be appropriate in view of the fairly minimal disease of the carotids on the left and mild disease on the right do not know that we need to pursue this any further at this time. An MRA could be done with less renal toxicity but I have been general not been very happy with the quality of the images that we get with MRI versus CT angiogram or formal arteriography. It may be the most appropriate evaluation at this time I will let Dr. Sanchez might decide if that study should be done. Current Visit: Yes History of Present Illness History of present illness: Mr. Espinoza is a 67 year old male Home Medications Medication Instructions Recorded Confirmed Type Aspirin EC Tab 81 mg PO DAILY #90 tablet 01/27/17 06/07/17 Rx Atenolol/Chlorthalidone 50-25 1 tablet PO DAILY #30 tablet 01/27/17 06/07/17 Rx [Tenoretic 50-25] Allergies Allergy/AdvReac Type Severity Reaction Status Date / Time No Known Allergies Allergy Verified 06/07/17 10:30 Medical,Surgical,& Family Hx - Medical History Cardio: History of: Hypertension Psychological: History of: Schizophrenia Neurology: History of: TIA Rheumatology: History of;: Gout - Surgical History Neurologic Surgeries: Patient denies: Neurologic Surgery Abdominal Surgeries: Patient denies: Abdominal Surgery Reproductive Surgeries: Patient denies;: Genitourinary Surgery - Family History Family History: Reports;: Family Cancer (Dad), Family Diabetes (Sister, mom, niece), Family Heart Disease (mom, sister), Family Stroke (niece) - Social History Smoking Status: Never smoker Frequency of Alcohol Use: Frequently Type of Drug Use: None Exam - Constitutional Vitals: Period Temp Pulse Resp BP Sys/Rodriguez Pulse Ox Last 24 Hr 96.3 F-98.4 F 53-58 18-22 160-189/75-95 93-99 Quality Measures - Stroke Onset of Symptoms Date: 06/02/17 Onset of Symptoms Time: 18:00 Results - Labs CBC & BMP: 06/09/17 06:01 06/09/17 06:01 Specialty Discharge - Follow Up or Referrals Follow up with: Eladio Jones MD [Physician] - 1 Month Dominique Sky MD [Physician] - 2 Weeks
[2017-06-09] MEDS: hydrALAZINE 25 MG TABLET PO SCH ×2 (16:06→21:40)
--- NOTE | 2017-06-09 19:08 | Nephrology Progress Note ---
Nephrology - PN: Subj Interval history: The patient is resting comfortably no acute changes. Renal function is stable with a creatinine of 3.6. Continue to monitor. Exam (PN)-Nephrology - Vital Signs Vital signs: Period Temp Pulse Resp BP Sys/Rodriguez Pulse Ox Last 24 Hr 96.3 F-98.4 F 53-58 18-22 144-189/75-95 93-99 - General Appearance General appearance: well-developed, well-nourished Neck: supple Respiratory: clear Cardiology: regular rate, regular rhythm Gastrointestinal: normoactive bowel sounds, no tenderness, no guarding Neurologic: alert and oriented x3 Musculoskeletal: no clubbing Psychiatric: mood/affect appropriate - Lab 06/09/17 06:01 06/09/17 06:01 Most recent lab results Calcium 8.3 MG/DL (8.5-10.1) L 06/09/17 06:01 Assessment and Plan (1) Hypertension Status: Chronic Current Visit: Yes Qualifiers: Hypertension type: essential hypertension Qualified Code(s): I10 - Essential (primary) hypertension (2) Acute kidney injury Status: Acute Assessment and plan: Renal ultrasound noted. Avoid nephrotoxic agents. Daily BMP. Strict I's and O's. Current Visit: Yes (3) Carotid stenosis Status: Acute Current Visit: Yes (4) History of gout Status: Chronic Current Visit: Yes (5) Acute CVA (cerebrovascular accident) Status: Acute Current Visit: Yes Specialty Discharge - Follow Up or Referrals Follow up with: Eladio Jones MD [Physician] - 1 Month Dominique Sky MD [Physician] - 2 Weeks
[2017-06-09] MEDS: ATORVASTATIN 10 MG TABLET PO SCH (21:40)
[2017-06-10] MEDS: SODIUM CHLORIDE 0.45% 1,000 ML IV SCH ×4 (00:17→13:38)
[2017-06-10] MEDS: ACETYLCYSTEINE 600 MG CAPSULE PO SCH ×2 (08:59→23:15)
[2017-06-10] MEDS: hydrALAZINE 25 MG TABLET PO SCH ×4 (08:59→23:15)
[2017-06-10] MEDS: ENOXAPARIN 30 MG/0.3 ML SYRINGE SUBCUT SCH (08:59)
[2017-06-10] MEDS: ATENOLOL/CHLORTHALIDONE 50-25 MG TABLET PO SCH (08:59)
[2017-06-10] MEDS: CLOPIDOGREL 75 MG TABLET PO SCH (08:59)
[2017-06-10] MEDS: ASPIRIN EC 81 MG TABLET PO SCH (08:59)
[2017-06-10] MEDS: ISOSORBIDE MONONITRATE 30 MG TABLET PO SCH (10:10)
[2017-06-10 10:17] LABS: Calcium 8.4 MG/DL (8.5-10.1)
--- NOTE | 2017-06-10 14:04 | Hospitalist Progress Note ---
Assessment and Plan (1) Acute ischemic stroke Status: Acute Assessment and plan: with right facial weakness and swallowing difficulties. MRI showed: Area of acute ischemia in the lucas radiata on the left. No acute hemorrhage. Evidence of remote scattered microhemorrhage in the bethany and basal ganglia regions as well as in the lucas radiata bilaterally. Carotid showed :Diffuse calcified atheromatous disease. 60-79% diameter stenosis right ICA origin. No hemodynamically significant stenosis on the left. [facility]er[facility] and Vascular are following. Plan continue with ASA and statin Continue PT/OT/ST, follow Neuro's recommendations Patient will go home with homehealth and PT when ready Current Visit: Yes (2) Carotid stenosis, right Status: Acute Assessment and plan: Doppler showed :Diffuse calcified atheromatous disease. 60-79% diameter stenosis right ICA origin. No hemodynamically significant stenosis on the left. Patient is unable do a CT angiogram due to poor renal status.Vascular is contemplating getting an MRA with less renal toxicity though the quality of images is not as good. plan Continue ASA plus Statin Follow Vascular's plan Current Visit: Yes (3) Hypertension Status: Chronic Assessment and plan: will increase hydralazine to 25mg qid, add Isosorbide mononitrates 15mg daily, follow response Current Visit: Yes Qualifiers: Hypertension type: essential hypertension Qualified Code(s): I10 - Essential (primary) hypertension (4) Acute kidney injury Status: Acute Assessment and plan: on IVF, Nephrology is following. BMP in am continue to avoid nephrotoxics Current Visit: Yes (5) History of gout Status: Chronic Assessment and plan: uric acid level-10.8 Consider low dose Allopurinol vs Uloric on dc, patient is not having an acute crisis right now. Current Visit: Yes Hospitalist: Subjective Interval history: Patient seen. He had no new complaints. Blood pressure is still poorly controlled.He will have home health and PT when ready. Exam - Constitutional Vitals: Period Temp Pulse Resp BP Sys/Rodriguez Pulse Ox Last 24 Hr 96.9 F-98.2 F 50-59 18-21 144-194/75-96 95-100 General appearance: no acute distress - Respiratory Respiratory exam: Present: clear to auscultation bilaterally - Cardiovascular Cardiovascular exam: Present: regular rate and rhythm - GI/Abdominal GI/Abdominal exam: Present: normal bowel sounds - Extremities Exam Extremities exam: Present: normal inspection - Neurological Exam Neurological exam: Present: alert, oriented X3, other (right facial weakness) Results - Labs CBC & BMP: 06/09/17 06:01 06/10/17 09:27 Lab Results: I have reviewed the past 24 hour labs Quality Measures - Stroke Onset of Symptoms Date: 06/02/17 Onset of Symptoms Time: 18:00 Specialty Discharge - Follow Up or Referrals Follow up with: Eladio Joens MD [Physician] - 1 Month Dominique Sky MD [Physician] - 2 Weeks
--- NOTE | 2017-06-10 14:51 | Event Note ---
Mr. madsen appears to be stable at this point in time from his CVA and as noted his creatinine is significantly elevated and thus the CT and angiogram has been canceled. I think based on the findings with ultrasound and the location of the stroke I do not feel we need to pursue the CT angiogram for a formal arteriogram. As stated yesterday if there is a strong desire to have more information on the carotid arteries and MRA can be done but it would probably not change any of the opinions that have stated this far
--- NOTE | 2017-06-10 17:15 | Nephrology Progress Note ---
Nephrology - PN: Subj Interval history: The patient is resting comfortably no acute changes. Renal function is stable with a creatinine of 3.6. Continue to monitor. 06/09/2017 the patient is resting comfortably. He sitting up eating his dinner. No acute changes. No shortness of breath or chest pain. Serum creatinine is noted to be 3.5. Blood pressure is acceptable. Exam (PN)-Nephrology - Vital Signs Vital signs: Period Temp Pulse Resp BP Sys/Rodriguez Pulse Ox Last 24 Hr 96.9 F-98.2 F 50-59 18-21 144-194/75-96 95-100 - General Appearance General appearance: well-developed, well-nourished EENT: ATNC Neck: supple Respiratory: clear Cardiology: regular rate, regular rhythm Gastrointestinal: normoactive bowel sounds, no tenderness Neurologic: alert and oriented x3 Musculoskeletal: no clubbing Psychiatric: mood/affect appropriate - Lab 06/09/17 06:01 06/10/17 09:27 Most recent lab results Calcium 8.4 MG/DL (8.5-10.1) L 06/10/17 09:27 Assessment and Plan (1) Hypertension Status: Chronic Current Visit: Yes Qualifiers: Hypertension type: essential hypertension Qualified Code(s): I10 - Essential (primary) hypertension (2) Acute kidney injury Status: Acute Assessment and plan: Renal ultrasound noted. Avoid nephrotoxic agents. Daily BMP. Strict I's and O's. Current Visit: Yes (3) Carotid stenosis Status: Acute Current Visit: Yes (4) History of gout Status: Chronic Current Visit: Yes (5) Acute CVA (cerebrovascular accident) Status: Acute Current Visit: Yes Specialty Discharge - Follow Up or Referrals Follow up with: Eladio Jones MD [Physician] - 1 Month Dominique Sky MD [Physician] - 2 Weeks
[2017-06-10] MEDS: ATORVASTATIN 10 MG TABLET PO SCH (23:16)
[2017-06-11] MEDS: SODIUM CHLORIDE 0.45% 1,000 ML IV SCH ×3 (02:10→18:11)
[2017-06-11 06:32] LABS: Basophils % 0.5 % (0.0-0.8); Eosinophils # 0.3 10*3/uL (0.0-0.87); Eosinophils % 3.9 % (0.00-10.9); Hematocrit 31.1 VOL% (42.0-52.0); Hemoglobin 10.2 GM/DL (14.0-18.0); Immature Granulocytes % 0.5 %; Immature Granulocytes Absolute 0.03 #; Lymphocytes # 1.4 10*3/uL (1.4-4.0); Lymphocytes % 22.3 % (21.2-54.2); Mean Corpuscular HGB Conc 32.8 GM/DL (32-36); Mean Corpuscular Hemoglobin 30 PG (27-34); Mean Corpuscular Volume 90.9 FL (87-102); Monocytes # 0.6 10*3/uL (0.11-0.8); Monocytes % 10.1 % (1.7-12.7); Neutrophils % 62.7 % (38.7-73.9); Platelet Count 245 T/CUMM (130-400); Red Blood Count 3.42 MC/CUMM (3.8-5.5); Red Cell Distribution Width 14.5 % (9.3-17.3); White Blood Count 6.4 T/CUMM (4-12)
[2017-06-11 07:02] LABS: Calcium 8.5 MG/DL (8.5-10.1); Magnesium 1.5 MG/DL (1.8-2.4); Potassium 4.3 MMOL/L (3.5-5.1)
[2017-06-11] MEDS: ENOXAPARIN 30 MG/0.3 ML SYRINGE SUBCUT SCH (08:17)
[2017-06-11] MEDS: CLOPIDOGREL 75 MG TABLET PO SCH (08:18)
[2017-06-11] MEDS: hydrALAZINE 25 MG TABLET PO SCH ×4 (08:18→21:56)
[2017-06-11] MEDS: ATENOLOL/CHLORTHALIDONE 50-25 MG TABLET PO SCH (08:18)
[2017-06-11] MEDS: ACETYLCYSTEINE 600 MG CAPSULE PO SCH ×2 (08:18→21:56)
[2017-06-11] MEDS: ASPIRIN EC 81 MG TABLET PO SCH (08:18)
[2017-06-11] MEDS: ISOSORBIDE MONONITRATE 30 MG TABLET PO SCH (08:18)
--- NOTE | 2017-06-11 11:34 | Event Note ---
Mr. Espinoza appears to be stable and from his stroke MRA has been ordered not sure when it can be done I will be out for the weekend so if he needs to be discharged or go to rehab that should not be stopped waiting on the MRI I think that we have a very unlikely circumstance that carotid endarterectomy is going to be indicated
--- NOTE | 2017-06-11 11:55 | Hospitalist Progress Note ---
Assessment and Plan (1) Acute ischemic stroke Status: Acute Assessment and plan: with right facial weakness and swallowing difficulties. MRI showed: Area of acute ischemia in the lucas radiata on the left. No acute hemorrhage. Evidence of remote scattered microhemorrhage in the bethany and basal ganglia regions as well as in the lucas radiata bilaterally. Carotid showed :Diffuse calcified atheromatous disease. 60-79% diameter stenosis right ICA origin. No hemodynamically significant stenosis on the left. Neruo and Vascular are following. Plan continue with ASA and statin Continue PT/OT/ST, follow Neuro's recommendations Patient will go home with homehealth and PT when ready Follow MRA of the head Current Visit: Yes (2) Carotid stenosis, right Status: Acute Assessment and plan: Doppler showed :Diffuse calcified atheromatous disease. 60-79% diameter stenosis right ICA origin. No hemodynamically significant stenosis on the left. Patient is unable do a CT angiogram due to poor renal status.patient is having an MRA today. plan Continue ASA plus Statin Follow Vascular's plan Current Visit: Yes (3) Hypertension Status: Chronic Assessment and plan: stable Current Visit: Yes Qualifiers: Hypertension type: essential hypertension Qualified Code(s): I10 - Essential (primary) hypertension (4) Acute kidney injury Status: Acute Assessment and plan: on IVF, Nephrology is following. BMP in am continue to avoid nephrotoxics Current Visit: Yes (5) History of gout Status: Chronic Assessment and plan: uric acid level-10.8 Consider low dose Allopurinol vs Uloric on dc, patient is not having an acute crisis right now. Current Visit: Yes Hospitalist: Subjective Interval history: patient seen, no new issues. He will be having an MRA of the head today. Exam - Constitutional Vitals: Period Temp Pulse Resp BP Sys/Rodriguez Pulse Ox Last 24 Hr 97.0 F-98.7 F 53-78 18-20 113-175/62-84 95-98 General appearance: no acute distress - Head Head exam: Present: normal inspection - Respiratory Respiratory exam: Present: clear to auscultation bilaterally - GI/Abdominal GI/Abdominal exam: Present: normal bowel sounds - Extremities Exam Extremities exam: Present: normal inspection - Neurological Exam Neurological exam: Present: alert, oriented X3 Results - Labs CBC & BMP: 06/11/17 05:45 06/11/17 05:45 Lab Results: I have reviewed the past 24 hour labs Quality Measures - Stroke Onset of Symptoms Date: 06/02/17 Onset of Symptoms Time: 18:00 Specialty Discharge - Follow Up or Referrals Follow up with: Eladio Jones MD [Physician] - 1 Month Dominique Sky MD [Physician] - 2 Weeks
--- NOTE | 2017-06-11 12:54 | Nephrology Progress Note ---
Nephrology - PN: Subj Interval history: The patient is resting comfortably no acute changes. Renal function is stable with a creatinine of 3.6. Continue to monitor. 06/09/2017 the patient is resting comfortably. He sitting up eating his dinner. No acute changes. No shortness of breath or chest pain. Serum creatinine is noted to be 3.5. Blood pressure is acceptable. 06/11/2017 patient continues to do acceptable. No acute changes. Serum creatinine is 3. Can follow with me outpatient at discharge. Exam (PN)-Nephrology - Vital Signs Vital signs: Period Temp Pulse Resp BP Sys/Rodriguez Pulse Ox Last 24 Hr 97.0 F-98.7 F 53-78 18-20 113-175/62-84 95-98 - General Appearance General appearance: well-developed, well-nourished EENT: ATNC Neck: supple Respiratory: clear Cardiology: regular rate, regular rhythm Gastrointestinal: normoactive bowel sounds, no tenderness Neurologic: alert and oriented x3 Psychiatric: mood/affect appropriate - Lab 06/11/17 05:45 06/11/17 05:45 Most recent lab results Calcium 8.5 MG/DL (8.5-10.1) 06/11/17 05:45 Magnesium 1.5 MG/DL (1.8-2.4) L 06/11/17 05:45 Assessment and Plan (1) Hypertension Status: Chronic Current Visit: Yes Qualifiers: Hypertension type: essential hypertension Qualified Code(s): I10 - Essential (primary) hypertension (2) Acute kidney injury Status: Acute Assessment and plan: Renal ultrasound noted. Avoid nephrotoxic agents. Daily BMP. Strict I's and O's. Follow me in 2 weeks at discharge. Current Visit: Yes (3) Carotid stenosis Status: Acute Current Visit: Yes (4) History of gout Status: Chronic Current Visit: Yes (5) Acute CVA (cerebrovascular accident) Status: Acute Current Visit: Yes Specialty Discharge - Follow Up or Referrals Follow up with: Eladio Jones MD [Physician] - 1 Month Dominique Sky MD [Physician] - 2 Weeks
--- NOTE | 2017-06-11 13:45 | Magnetic Resonance Report ---
Exam: MR angio head wo dayanara (CRISTIANA) Date: 06/11/2017 11:27 AM Indication: Question blockage Comparison: MRI the brain 06/07/2017 and carotid sonogram 06/07/[address] brain 06/07/2017. Technical 1.5 Miriam magnet. Axial 3-D slab imaging and 3-D reproduction images are available for review. Findings: The A1 segment on the right appears to have a small area of narrowing. The A1 and A2 segments are otherwise unremarkable. The M1 and M2 bifurcation trifurcation regions are intact. The internal carotid arteries reveal minimal dolichoectasia present. The vertebral arteries are demonstrated without acute findings. The basilar artery reveals a small focal segment the could represent a small tiny aneurysm from the basilar artery is measuring approximately 3.5 mm anterior posteriorly and is less than 2 mm in diameter transversely. The posterior cerebral P1 and P2 segments appear intact bilaterally. The posterior communicating arteries are poorly demonstrated. The anterior communicating artery is patent. Impression: 1. 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 2. 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 Mild stenosis of the right A1 segment. PROCEDURE INTERPRETED AT [facility] DEPARTMENT OF RADIOLOGY Final Report Signed by: Dr. Ulisses Cortez
[2017-06-11] MEDS ORDERED: ACETAMINOPHEN 325 MG TABLET PO PRN (18:05)
[2017-06-11] MEDS: ATORVASTATIN 10 MG TABLET PO SCH (21:56)
[2017-06-12] MEDS: SODIUM CHLORIDE 0.45% 1,000 ML IV SCH ×2 (06:52→23:01)
[2017-06-12] MEDS: ACETYLCYSTEINE 600 MG CAPSULE PO SCH ×2 (08:20→23:00)
[2017-06-12] MEDS: CLOPIDOGREL 75 MG TABLET PO SCH (08:20)
[2017-06-12] MEDS: ATENOLOL/CHLORTHALIDONE 50-25 MG TABLET PO SCH (08:20)
[2017-06-12] MEDS: ENOXAPARIN 30 MG/0.3 ML SYRINGE SUBCUT SCH (08:20)
[2017-06-12] MEDS: ASPIRIN EC 81 MG TABLET PO SCH (08:21)
[2017-06-12] MEDS: hydrALAZINE 25 MG TABLET PO SCH ×4 (08:21→23:00)
[2017-06-12] MEDS: ISOSORBIDE MONONITRATE 30 MG TABLET PO SCH (08:21)
--- NOTE | 2017-06-12 10:13 | Hospitalist Progress Note ---
Assessment and Plan (1) Acute ischemic stroke Status: Acute Assessment and plan: with right facial weakness and swallowing difficulties. MRI showed: Area of acute ischemia in the lucas radiata on the left. No acute hemorrhage. Evidence of remote scattered microhemorrhage in the bethany and basal ganglia regions as well as in the lucas radiata bilaterally. Carotid showed :Diffuse calcified atheromatous disease. 60-79% diameter stenosis right ICA origin. No hemodynamically significant stenosis on the left. 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 2. 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 Mild stenosis of the right A1 segment. Neuro and Vascular are following. Plan continue with ASA and statin Continue PT/OT/ST, follow Neuro's recommendations Patient will go home with homehealth and PT when ready, possible in am Current Visit: Yes (2) Carotid stenosis, right Status: Acute Assessment and plan: Doppler showed :Diffuse calcified atheromatous disease. 60-79% diameter stenosis right ICA origin. No hemodynamically significant stenosis on the left. Patient is unable do a CT angiogram due to poor renal status. MRA finding as stated above. plan Continue ASA plus Statin Follow Vascular's plan Current Visit: Yes (3) Hypertension Status: Chronic Assessment and plan: stable Current Visit: Yes Qualifiers: Hypertension type: essential hypertension Qualified Code(s): I10 - Essential (primary) hypertension (4) Acute kidney injury Status: Acute Assessment and plan: on IVF, Nephrology is following. BMP in am continue to avoid nephrotoxics Current Visit: Yes (5) History of gout Status: Chronic Assessment and plan: uric acid level-10.8 Consider low dose Allopurinol vs Uloric on dc, patient is not having an acute crisis right now. Current Visit: Yes Hospitalist: Subjective Interval history: patient seen this am with no new issues.MRA of the head noted. Creatinine level is slowly improving. Exam - Constitutional Vitals: Period Temp Pulse Resp BP Sys/Rodriguez Pulse Ox Last 24 Hr 97.0 F-98.3 F 50-65 16-20 143-162/77-89 96-99 General appearance: no acute distress - Head Head exam: Present: normal inspection - ENT ENT exam: Present: normal exam - Respiratory Respiratory exam: Present: clear to auscultation bilaterally - Cardiovascular Cardiovascular exam: Present: regular rate and rhythm - GI/Abdominal GI/Abdominal exam: Present: normal bowel sounds - Extremities Exam Extremities exam: Present: normal inspection - Neurological Exam Neurological exam: Present: alert, oriented X3 Results - Labs CBC & BMP: 06/11/17 05:45 06/11/17 05:45 Lab Results: I have reviewed the past 24 hour labs Quality Measures - Stroke Onset of Symptoms Date: 06/02/17 Onset of Symptoms Time: 18:00 Specialty Discharge - Follow Up or Referrals Follow up with: Eladio Jones MD [Physician] - 1 Month Dominique Sky MD [Physician] - 2 Weeks
[2017-06-12] MEDS ORDERED: MAGNESIUM SULF RIDER 2 GM in PREMIX 1 EACH IV ONE (10:14)
--- NOTE | 2017-06-12 10:24 | Nephrology Progress Note ---
Nephrology - PN: Subj Interval history: Pt denies SOB/pain. Creatinine improved to 31. for eGFR 27cc/min, CKD 4. Exam (PN)-Nephrology - Vital Signs Vital signs: Period Temp Pulse Resp BP Sys/Rodriguez Pulse Ox Last 24 Hr 97.0 F-98.3 F 50-65 16-20 143-162/77-89 96-99 - General Appearance General appearance: well-developed, well-nourished EENT: ATNC, PERRL, mucous membranes dry, hearing intact, vision intact Neck: no JVD, no thyromegaly Respiratory: no kyphosis, clear Cardiology: no murmurs, no rub Gastrointestinal: normoactive bowel sounds, no tenderness Integumentary: no rash, warm and dry Neurologic: no asterixis, alert and oriented x3 Musculoskeletal: no deformities, no erythema Psychiatric: mood/affect appropriate, cooperative - Lab 06/11/17 05:45 06/11/17 05:45 Most recent lab results Calcium 8.5 MG/DL (8.5-10.1) 06/11/17 05:45 Magnesium 1.5 MG/DL (1.8-2.4) L 06/11/17 05:45 Assessment and Plan (1) CKD (chronic kidney disease) stage 3, GFR 30-59 ml/min Status: Acute Current Visit: Yes (2) Acute kidney injury Problem details: Stable to improved. Status: Acute Assessment and plan: Continue current therapy. Current Visit: Yes Specialty Discharge - Follow Up or Referrals Follow up with: Eladio Jones MD [Physician] - 1 Month Dominique Sky MD [Physician] - 2 Weeks
[2017-06-12] MEDS: ATORVASTATIN 10 MG TABLET PO SCH (23:00)
[2017-06-13 04:52] LABS: Basophils # 0.1 10*3/uL (0.0-0.2); Basophils % 0.8 % (0.0-0.8); Eosinophils # 0.2 10*3/uL (0.0-0.87); Eosinophils % 3.1 % (0.00-10.9); Hematocrit 30.1 VOL% (42.0-52.0); Immature Granulocytes % 0.2 %; Immature Granulocytes Absolute 0.01 #; Lymphocytes # 1.9 10*3/uL (1.4-4.0); Lymphocytes % 31.1 % (21.2-54.2); Mean Corpuscular HGB Conc 33.2 GM/DL (32-36); Mean Corpuscular Hemoglobin 30 PG (27-34); Mean Corpuscular Volume 91.5 FL (87-102); Mean Platelet Volume 10.8 FL (9.6-12.0); Monocytes # 0.6 10*3/uL (0.11-0.8); Monocytes % 10.4 % (1.7-12.7); Neutrophils # 3.3 10*3/uL (1.4-7.4); Neutrophils % 54.4 % (38.7-73.9); Platelet Count 240 T/CUMM (130-400); Red Blood Count 3.29 MC/CUMM (3.8-5.5); Red Cell Distribution Width 14.4 % (9.3-17.3)
[2017-06-13 05:16] LABS: Calcium 8.9 MG/DL (8.5-10.1); Magnesium 2.1 MG/DL (1.8-2.4); Osmolality,Calculated 291.1 MOS/KG (273-304); Potassium 4.4 MMOL/L (3.5-5.1)
[2017-06-13] MEDS: ISOSORBIDE MONONITRATE 30 MG TABLET PO SCH (09:33)
[2017-06-13] MEDS: ATENOLOL/CHLORTHALIDONE 50-25 MG TABLET PO SCH (09:34)
[2017-06-13] MEDS: ACETYLCYSTEINE 600 MG CAPSULE PO SCH (09:34)
[2017-06-13] MEDS: CLOPIDOGREL 75 MG TABLET PO SCH (09:34)
[2017-06-13] MEDS: ASPIRIN EC 81 MG TABLET PO SCH (09:34)
[2017-06-13] MEDS: hydrALAZINE 25 MG TABLET PO SCH (09:34)
[2017-06-13] MEDS: ENOXAPARIN 30 MG/0.3 ML SYRINGE SUBCUT SCH (09:34)
--- NOTE | 2017-06-13 11:02 | Discharge Summary ---
<Huber Tanlurdesxiomara - Last Filed: 06/13/17 11:11> Hospital Course - Hospital Course Hospital Course: Mr. Espinoza is a 67 yr old male with a history of hypertension that presented to the ED on 06/07 with concerns of a possible stroke. The patient reported a facial droop and right sided weakness for about 6 days prior to his presentation to the ED. CT revealed evidence of lacunar infarct on indeterminate age. Pt. was also noted to have a BUN and creatinine of 61/4.5. Pt. was admitted to the hospitalist service for further evaluation. There were several consultations made. Neurology ordered CT angiogram but it was unable to be performed due to patient's poor kidney function. Carotid ultra sound revealed right ICA stenosis of 50-79%. 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 Mild stenosis of the right A1 segment. PT/OT worked with patient for strengthening. Nephrology assisted in the care of elevated creatinine which has since decreased significantly. Pt's condition improved. He was scheduled for outpatient PT/OT/ST. He can be discharged to home with home health. His vitals are stable. He will follow with PCP, nephrology, Neuro and vascular as outpatient. Specialty Discharge - Follow Up or Referrals Follow up with: Eladio Jones MD [Physician] - 1 Month Dominique Sky MD [Physician] - 2 Weeks Discharge Plan - Discharge Data Disposition: Home Health Service - Discharge Medications New Atenolol/Chlorthalidone 50-25 [Tenoretic 50-25] 1 tablet PO DAILY #30 tablet Atorvastatin [Lipitor] 10 mg PO BEDTIME #30 tablet Clopidogrel [Plavix] 75 mg PO DAILY #30 tablet hydrALAZINE TAB [Apresoline Tab] 25 mg PO QID #120 tablet Isosorbide Mononitrate [Imdur] 15 mg PO DAILY #30 tablet Acetaminophen Tab [Tylenol Tab] 650 mg PO Q6H PRN tablet PRN Reason: Fever, Headache, Mild Pain Aspirin EC Tab 81 mg PO DAILY #30 tablet Discontinued Aspirin EC Tab 81 mg PO DAILY #90 tablet Atenolol/Chlorthalidone 50-25 [Tenoretic 50-25] 1 tablet PO DAILY #30 tablet - Follow Up or Referral Follow Up: Eladio Jones MD [Physician] - 1 Month Dominique Sky MD [Physician] - 2 Weeks - Forms/Instructions Instructions: Ischemic Stroke (DC) Exam - Constitutional Vitals: Period Temp Pulse Resp BP Sys/Rodriguez Pulse Ox Last 24 Hr 97 F-98.3 F 52-62 18-20 151-176/74-89 96-98 Discharge Results Labs on day of discharge: Labs from last 24 hours 06/13/17 06/13/17 06/13/17 07:19 04:17 04:17 WBC 6.0 RBC 3.29 L Hgb 10.0 L Hct 30.1 L MCV 91.5 MCH 30 MCHC 33.2 RDW 14.4 Plt Count 240 MPV 10.8 Neut % (Auto) 54.4 Lymph % (Auto) 31.1 [place]ette % (Auto) 10.4 Eos % (Auto) 3.1 Baso % (Auto) 0.8 Neut # (Auto) 3.3 Lymph # (Auto) 1.9 [place]ette # (Auto) 0.6 Eos # (Auto) 0.2 Baso # (Auto) 0.1 Immature Gran % 0.2 Nucleated RBC % 0.0 Immature Gran # 0.01 Nucleated RBCs # 0.00 Immature Plt Fraction 0.0 Sodium 142 Potassium 4.4 Chloride 115 H Carbon Dioxide 17 L Anion Gap 14.4 BUN 41 H Creatinine 3.00 H GFR Calculation 28 BUN/Creatinine Ratio 13.00 Glucose 84 POC Glucose 93 Calculated Osmolality 291.1 Calcium 8.9 Magnesium 2.1 DS: Provider Date of admission: 06/08/17 12:58 Primary care physician: . No PCP Attending physician on admission: Dori Allen MD Consults: 06/07/17 14:27 Consult to Case Mgmt/Social Srvs [CONS] Routine Reason for Case Mgmt/Social Srvs: Discharge Planning Consult to Occupational Therapy [CONS] Routine Reason for Occupational Therapy: Evaluate and Treat Consult Comment: Stroke Consult to Physical Therapy [CONS] Routine Reason for Physical Therapy: Evaluate and Treat Consult Comment: stroke 06/07/17 14:31 Consult to Physician [CONS] Routine Comment: CVA Consulting Provider: Eladio Jones Consult to Specialist Group: Neurology 06/08/17 08:29 Consult to Physician [CONS] Routine Comment: stenosis 60-79% Consulting Provider: Mathieu Echols 06/08/17 09:47 Consult to Case Mgmt/Social Srvs [CONS] Routine Reason for Case Mgmt/Social Srvs: Swingbed/SNF/Retirement Consult Comment: TMR 06/08/17 14:54 Consult to Physician [CONS] Routine Comment: consult Nephrology Consulting Provider: Adonay Quintana Jr. Person Notified: ISAMAR Date Notified: 06/08/17 Time Notified: 15:11 06/13/17 11:35 Consult to Case Mgmt/Social Srvs [CONS] Routine Reason for Case Mgmt/Social Srvs: Home Health Consult Comment: home health and pt Discharging clinician: Alex Tan NP <Dori Allen - Last Filed: 06/13/17 12:11> Hospital Course - Time spent with patient Time with patient DS: Greater than 30 minutes (time spent:40mins) Diagnosis - Discharge Diagnosis (1) Acute ischemic stroke Status: Acute (2) Carotid stenosis, right Status: Acute (3) Hypertension Status: Chronic (4) Acute kidney injury Status: Acute (5) History of gout Status: Chronic Discharge Plan - Discharge Data Condition at Discharge: Stable Discharge Diet: advance to your usual diet Activity: resume usual activities as tolerated - Forms/Instructions Additional Discharge Instructions: Follow with PCP in 1week Exam - Constitutional General appearance: no acute distress - Head Head exam: Present: normal inspection - Respiratory Respiratory exam: Present: clear to auscultation bilaterally - Cardiovascular Cardiovascular exam: Present: regular rate and rhythm - GI/Abdominal GI/Abdominal exam: Present: normal bowel sounds - Extremities Exam Extremities exam: Present: normal inspection
[2017-06-13] MEDS: SODIUM CHLORIDE 0.45% 1,000 ML IV SCH (11:38)
--- NOTE | 2017-06-13 12:22 | Nephrology Progress Note ---
Nephrology - PN: Subj Interval history: Pt states he feels fine. Denies SOB/pain. Exam (PN)-Nephrology - Vital Signs Vital signs: Period Temp Pulse Resp BP Sys/Rodriguez Pulse Ox Last 24 Hr 97 F-98.3 F 52-62 18-20 151-176/74-89 96-98 - General Appearance General appearance: well-developed, well-nourished EENT: ATNC, PERRL Neck: no JVD, no thyromegaly Respiratory: no kyphosis, clear Cardiology: no murmurs, no rub Gastrointestinal: normoactive bowel sounds, no tenderness Integumentary: no rash, warm and dry Neurologic: no asterixis, alert and oriented x3 Musculoskeletal: no deformities, no erythema Psychiatric: mood/affect appropriate, cooperative - Lab 06/13/17 04:17 06/13/17 04:17 Most recent lab results Calcium 8.9 MG/DL (8.5-10.1) 06/13/17 04:17 Magnesium 2.1 MG/DL (1.8-2.4) 06/13/17 04:17 Assessment and Plan (1) CKD (chronic kidney disease) stage 3, GFR 30-59 ml/min Problem details: stable. Status: Acute Assessment and plan: F/U Dr Quintana as outpt. Current Visit: Yes (2) Acute kidney injury Problem details: Stable to improved. Status: Acute Assessment and plan: Continue current therapy. Current Visit: Yes Specialty Discharge - Follow Up or Referrals Follow up with: Eladio Jones MD [Physician] - 1 Month Dominique Sky MD [Physician] - 2 Weeks
[2017-06-13 12:35] VITALS: BP 146/78
== END 2017-06-13 13:01 | disposition home health service (06) | DRG 65 ==
LOC: N.EDINP 10:22 → N.ED 10:22 → N.EDINP 13:16 → N.2E 13:31
PROVIDERS: ADMIT Internal Medicine; ATTEND Internal Medicine

== ENCOUNTER 2020-09-07 17:49 | Inpatient (IN) ==
[2020-09-07] MEDS ORDERED: LACTATED RINGERS 1,000 ML IV ONE ×2 (18:14→18:30)
[2020-09-07 18:36] LABS: ABG Base Excess -19.2 MMOL/L (-2.5-2.5); ABG HCO3 10.2 MMOL/L (20-26); ABG Oxygen Saturation 89.2 % (95-100); ABG PH 7.216 (7.35-7.45); ABG PO2 67.7 MM HG (80-95); ABG TCO2 6.9 MMOL/L (23-27); Allen Test Positive
[2020-09-07 18:38] LABS: ABG PCO2 18.4 MM HG (35-48)
[2020-09-07 18:43] LABS: Hematocrit 37.1 VOL% (42.0-52.0); Hemoglobin 11.9 GM/DL (14.0-18.0); Lymphocytes # 0.1 10*3/uL (1.4-4.0); Mean Corpuscular HGB Conc 32.1 GM/DL (32-36); Mean Corpuscular Volume 91.6 FL (87-102); Mean Platelet Volume 10.7 FL (9.6-12.0); Monocytes % 5.1 % (1.7-12.7); Neutrophils % 85.9 % (38.7-73.9); Platelet Count 231 T/CUMM (130-400); Red Blood Count 4.05 MC/CUMM (3.8-5.5); Red Cell Distribution Width 15.1 % (9.3-17.3); White Blood Count 1.6 T/CUMM (4-12)
[2020-09-07 18:50] LABS: Bilirubin,Urine Negative (Negative); Blood, Urine Large mg/dL (Negative); Glucose,Urine (UA) Negative (Negative); Ketones,Urine 5 mg/dL (Negative); Nitrite,Urine Negative (Negative); Protein,Urine >=500 MG/DL; Squamous Epithelial Cell,Urine Occasional /HPF (0-10); Urine Appearance CLOUDY (Clear); Urine Color Yellow (Yellow); Urine Specific Gravity 1.014 (1.001-1.035); Urine Urobilinogen < 2.0 EU/DL (0.2-1.0); WBC,Urine 4 /HPF (0-6)
[2020-09-07 18:57] LABS: INR 1.1; PT Patient Result 11.3 SECS (9.8-11.9); Partial Thromboplastin Time 26.9 SECS (23.9-33.8)
[2020-09-07] MEDS ORDERED: CEFEPIME 2,000 MG in SODIUM CHLORIDE 0.9% 100 ML IV STA (19:05)
[2020-09-07 19:12] LABS: Alanine Aminotransferase 37 U/L (16-61); Albumin 3.3 G/DL (3.4-5.0); Alkaline Phosphatase 92 U/L (45-117); Aspartate Amino Transferase 105 U/L (0-37); Blood Urea Nitrogen 123 MG/DL (7-18); Calcium 9.2 MG/DL (8.5-10.1); Estimated Glom Filtration Rate 7 ML/MIN; Glucose 121 MG/DL (74-106); Osmolality,Calculated 329.6 MOS/KG (273-304); Total Protein 7.7 G/DL (6.4-8.3)
[2020-09-07] MEDS ORDERED: CEFEPIME 1,000 MG VIAL ONE (19:14)
[2020-09-07] MEDS ORDERED: ONDANSETRON 4 MG/2 ML VIAL IV PRN (20:05)
[2020-09-07] MEDS ORDERED: ALBUTEROL 2.5 MG/3 ML NEB RESP TX PRN (20:05)
[2020-09-07] MEDS ORDERED: SODIUM CHLORIDE 0.9% 100 ML IV STA (20:10)
[2020-09-07] MEDS: SODIUM BICARB INJ 150 MEQ in DEXTROSE 5% 850 ML IV SCH (20:10)
[2020-09-07 20:55] LABS: Anisocytosis 2+; Hypochromasia 2+; Lymphocytes 19 % (20-55); Microcytosis 2+; Segmented Neutrophils 75 % (50-85); Total Cells Counted 100
[2020-09-07 22:15] LABS: Albumin 2.8 G/DL (3.4-5.0); Bilirubin,Total 0.4 MG/DL (0.2-1.0); Calcium 8.2 MG/DL (8.5-10.1); Osmolality,Calculated 327.4 MOS/KG (273-304); Total Protein 6.4 G/DL (6.4-8.3)
[2020-09-07] MEDS ORDERED: LABETALOL 20 MG/4 ML SYRINGE IV STA (22:24)
[2020-09-07] MEDS ORDERED: SODIUM BICARBONATE 50 MEQ/50 ML VIAL IV ONE (22:26)
[2020-09-07] MEDS: FAMOTIDINE 20 MG/2 ML VIAL IV SCH (23:04)
[2020-09-07] MEDS: hydrALAZINE 25 MG TABLET PO SCH (23:05)
[2020-09-07] MEDS: AZITHROMYCIN INJ 500 MG in SODIUM CHLORIDE 0.9% 250 ML IV SCH (23:06)
[2020-09-07] MEDS: cefTRIAXone 1,000 MG in SYRINGE 1 EACH IV SCH (23:09)
[2020-09-07] MEDS ORDERED: ETOMIDATE 20 MG/10 ML VIAL IV ONE ×2 (23:30→23:37)
[2020-09-07] MEDS ORDERED: VECURONIUM 10 MG VIAL IV ONE ×2 (23:30→23:37)
[2020-09-07] MEDS ORDERED: PHENYLEPHRINE DRIP 40 MG/250 ML PREMIX IV ONE (23:37)
[2020-09-07] MEDS ORDERED: SODIUM CHLORIDE 0.9% 1,000 ML IV ONE (23:55)
[2020-09-07] MEDS ORDERED: PHENYLEPHRINE DRIP 40 MG/250 ML PREMIX IV PRN (23:55)
[2020-09-08] MEDS ORDERED: ETOMIDATE 20 MG/10 ML VIAL IV ONE (00:27)
[2020-09-08] MEDS ORDERED: VECURONIUM 10 MG VIAL IV ONE (00:27)
[2020-09-08] MEDS: CLINDAMYCIN INJ 600 MG in PREMIX 1 EACH IV SCH ×3 (00:37→14:57)
[2020-09-08] MEDS: SODIUM BICARB INJ 150 MEQ in DEXTROSE 5% 850 ML IV SCH ×6 (00:39→20:56)
[2020-09-08 00:40] LABS: ABG Base Excess -10.4 MMOL/L (-2.5-2.5); ABG HCO3 16.1 MMOL/L (20-26); ABG Oxygen Saturation 98.1 % (95-100); ABG PCO2 30.3 MM HG (35-48); ABG PH 7.303 (7.35-7.45); ABG TCO2 14.1 MMOL/L (23-27); Allen Test Positive; Pt O2 Delivery Device Ventilator
[2020-09-08 03:37] LABS: Hematocrit 26.5 VOL% (42.0-52.0); Hemoglobin 8.9 GM/DL (14.0-18.0); Immature Granulocytes % 0.6 %; Immature Granulocytes Absolute 0.01 #; Lymphocytes # 0.1 10*3/uL (1.4-4.0); Lymphocytes % 7.3 % (21.2-54.2); Mean Corpuscular HGB Conc 33.6 GM/DL (32-36); Mean Corpuscular Volume 87.7 FL (87-102); Mean Platelet Volume 10.9 FL (9.6-12.0); Neutrophils % 89.1 % (38.7-73.9); Platelet Count 172 T/CUMM (130-400); Red Blood Count 3.02 MC/CUMM (3.8-5.5); Red Cell Distribution Width 14.6 % (9.3-17.3); White Blood Count 1.6 T/CUMM (4-12)
[2020-09-08 04:00] LABS: Alanine Aminotransferase 38 U/L (16-61); Albumin 2.5 G/DL (3.4-5.0); Alkaline Phosphatase 66 U/L (45-117); Aspartate Amino Transferase 125 U/L (0-37); Bilirubin,Total < 0.39 MG/DL (0.2-1.0); Blood Urea Nitrogen 116 MG/DL (7-18); Estimated Glom Filtration Rate 7 ML/MIN; Glucose 113 MG/DL (74-106); Osmolality,Calculated 331.3 MOS/KG (273-304); Total Protein 6.1 G/DL (6.4-8.3)
[2020-09-08 04:15] LABS: CKMB % 1.8 %
[2020-09-08 04:16] LABS: Band Neutrophils 9 % (0-10); Eosinophils 3 % (0-10); Hypochromasia Slight; Lymphocytes 9 % (20-55); Metamyelocytes 3 %; Microcytosis Slight; Myelocytes 4 %; Nucleated Red Blood Cells 1 (0-5); Platelet Estimate Normal; Segmented Neutrophils 70 % (50-85); Total Cells Counted 100
[2020-09-08 05:03] LABS: Troponin I 9.76 NG/ML (0.00-0.045)
[2020-09-08 05:12] LABS: ABG Base Excess -4.3 MMOL/L (-2.5-2.5); ABG HCO3 20.8 MMOL/L (20-26); ABG PCO2 31.6 MM HG (35-48); ABG PH 7.402 (7.35-7.45); ABG TCO2 18.1 MMOL/L (23-27)
[2020-09-08] MEDS: CLOPIDOGREL 75 MG TABLET PO SCH (08:55)
[2020-09-08] MEDS: ISOSORBIDE MONONITRATE 30 MG TABLET PO SCH (08:55)
[2020-09-08] MEDS: FAMOTIDINE 20 MG/2 ML VIAL IV SCH ×2 (08:55→20:45)
[2020-09-08] MEDS: hydrALAZINE 25 MG TABLET PO SCH ×4 (08:55→20:55)
[2020-09-08] MEDS: HEPARIN 5,000 UNIT/1 ML VIAL SUBCUT SCH ×2 (08:55→20:46)
[2020-09-08] MEDS ORDERED: ASPIRIN EC 81 MG TABLET PO SCH (09:00)
[2020-09-08] MEDS: MIDAZOLAM 100 MG in SODIUM CHLORIDE 0.9% 80 ML IV PRN (10:15)
[2020-09-08 12:47] LABS: Alanine Aminotransferase 30 U/L (16-61); Albumin 2.2 G/DL (3.4-5.0); Alkaline Phosphatase 57 U/L (45-117); Aspartate Amino Transferase 98 U/L (0-37); Bilirubin,Total < 0.39 MG/DL (0.2-1.0); Blood Urea Nitrogen 113 MG/DL (7-18); Calcium 7.3 MG/DL (8.5-10.1); Estimated Glom Filtration Rate 8 ML/MIN; Glucose 275 MG/DL (74-106); Osmolality,Calculated 341.1 MOS/KG (273-304); Total Protein 4.7 G/DL (6.4-8.3); Uric Acid 11.6 MG/DL (3.5-7.2)
[2020-09-08 14:17] LABS: Hepatitis B Core IgM Quant 0.08 Index; Hepatitis B Surface Ag Quant < 0.10 Index; Hepatitis B Surface Ag Result Negative (Negative); Hepatitis C Virus Ab Quant < 0.02 Index; Hepatitis C Virus Ab Result Negative (Negative)
[2020-09-08] MEDS: AZITHROMYCIN INJ 500 MG in SODIUM CHLORIDE 0.9% 250 ML IV SCH (20:47)
[2020-09-08] MEDS: cefTRIAXone 1,000 MG in SYRINGE 1 EACH IV SCH (20:55)
[2020-09-09] MEDS: CLINDAMYCIN INJ 600 MG in PREMIX 1 EACH IV SCH ×4 (00:07→23:00)
[2020-09-09] MEDS: SODIUM BICARB INJ 150 MEQ in DEXTROSE 5% 850 ML IV SCH ×2 (02:11→07:57)
[2020-09-09 04:13] LABS: ABG Base Excess 9.6 MMOL/L (-2.5-2.5); ABG HCO3 33.2 MMOL/L (20-26); ABG Oxygen Saturation 84.5 % (95-100); ABG PCO2 49.6 MM HG (35-48); ABG PH 7.454 (7.35-7.45); ABG PO2 53.9 MM HG (80-95); ABG TCO2 32.6 MMOL/L (23-27); Allen Test Positive; Pt O2 Delivery Device Ventilator
[2020-09-09 04:59] LABS: Basophils % 0.2 % (0.0-0.8); Eosinophils % 0.2 % (0.00-10.9); Hematocrit 20.7 VOL% (42.0-52.0); Hemoglobin 7.1 GM/DL (14.0-18.0); Immature Granulocytes % 15.7 %; Immature Granulocytes Absolute 1.03 #; Lymphocytes # 0.5 10*3/uL (1.4-4.0); Lymphocytes % 7.6 % (21.2-54.2); Mean Corpuscular HGB Conc 34.3 GM/DL (32-36); Mean Corpuscular Volume 85.9 FL (87-102); Mean Platelet Volume 12.6 FL (9.6-12.0); Monocytes % 0.8 % (1.7-12.7); Neutrophils % 75.5 % (38.7-73.9); Platelet Count 116 T/CUMM (130-400); Red Blood Count 2.41 MC/CUMM (3.8-5.5); White Blood Count 6.6 T/CUMM (4-12)
[2020-09-09 05:00] LABS: ABG Base Excess 13.8 MMOL/L (-2.5-2.5); ABG HCO3 37.7 MMOL/L (20-26); ABG PH 7.587 (7.35-7.45); ABG TCO2 34.9 MMOL/L (23-27)
[2020-09-09 05:14] LABS: Albumin 1.9 G/DL (3.4-5.0); Bilirubin,Total 0.4 MG/DL (0.2-1.0); Calcium 6.9 MG/DL (8.5-10.1); Osmolality,Calculated 313.7 MOS/KG (273-304); Total Protein 5.3 G/DL (6.4-8.3)
[2020-09-09 05:27] LABS: Band Neutrophils 10 % (0-10); Eosinophils 1 % (0-10); Hypochromasia 2+; Lymphocytes 14 % (20-55); Microcytosis 1+; Ovalocytes Slight; Platelet Estimate Decreased; Segmented Neutrophils 73 % (50-85); Total Cells Counted 100
[2020-09-09] MEDS: ISOSORBIDE MONONITRATE 30 MG TABLET PO SCH (08:11)
[2020-09-09] MEDS: CLOPIDOGREL 75 MG TABLET PO SCH (08:11)
[2020-09-09] MEDS: hydrALAZINE 25 MG TABLET PO SCH ×4 (08:11→21:17)
[2020-09-09] MEDS: ASPIRIN CHEW 81 MG TABLET PO SCH (08:11)
[2020-09-09] MEDS: FAMOTIDINE 20 MG/2 ML VIAL IV SCH (08:12)
[2020-09-09] MEDS: SODIUM CHLORIDE 0.9% 1,000 ML IV SCH ×2 (08:16→17:59)
[2020-09-09 11:24] LABS: Protein/Creatinine Ratio,Urine 2.8 RATIO
[2020-09-09] MEDS: cefTRIAXone 1,000 MG in SYRINGE 1 EACH IV SCH (21:17)
[2020-09-09] MEDS: AZITHROMYCIN INJ 500 MG in SODIUM CHLORIDE 0.9% 250 ML IV SCH (21:18)
[2020-09-10] MEDS: SODIUM CHLORIDE 0.9% 1,000 ML IV SCH ×2 (04:00→14:48)
[2020-09-10] MEDS: MIDAZOLAM 100 MG in SODIUM CHLORIDE 0.9% 80 ML IV PRN (05:07)
[2020-09-10 05:19] LABS: Basophils # 0.1 10*3/uL (0.0-0.2); Basophils % 0.5 % (0.0-0.8); Eosinophils % 0.2 % (0.00-10.9); Hemoglobin 7.1 GM/DL (14.0-18.0); Immature Granulocytes % 0.9 %; Immature Granulocytes Absolute 0.09 #; Lymphocytes # 0.6 10*3/uL (1.4-4.0); Lymphocytes % 5.4 % (21.2-54.2); Mean Corpuscular HGB Conc 33.8 GM/DL (32-36); Mean Corpuscular Volume 88.6 FL (87-102); Mean Platelet Volume 12.8 FL (9.6-12.0); Monocytes % 1.6 % (1.7-12.7); NRBC # 0.02 10*3/uL; Neutrophils % 91.4 % (38.7-73.9); Red Blood Count 2.37 MC/CUMM (3.8-5.5); Red Cell Distribution Width 14.1 % (9.3-17.3); White Blood Count 10.2 T/CUMM (4-12)
[2020-09-10 05:24] LABS: Platelet Count 94 T/CUMM (130-400)
[2020-09-10 05:33] LABS: Hypochromasia 1+; Lymphocytes 9 % (20-55); Microcytosis Slight; Platelet Estimate Decreased; Segmented Neutrophils 86 % (50-85); Total Cells Counted 100
[2020-09-10 05:42] LABS: Albumin 1.8 G/DL (3.4-5.0); Bilirubin,Total 0.5 MG/DL (0.2-1.0); Calcium 7.8 MG/DL (8.5-10.1); Osmolality,Calculated 297.3 MOS/KG (273-304); Total Protein 5.3 G/DL (6.4-8.3)
[2020-09-10] MEDS: CLINDAMYCIN INJ 600 MG in PREMIX 1 EACH IV SCH (06:46)
[2020-09-10] MEDS: ASPIRIN CHEW 81 MG TABLET PO SCH (08:01)
[2020-09-10] MEDS: FAMOTIDINE 20 MG/2 ML VIAL IV SCH (08:01)
[2020-09-10] MEDS: ISOSORBIDE MONONITRATE 30 MG TABLET PO SCH (08:01)
[2020-09-10] MEDS ORDERED: ACETAMINOPHEN 325 MG TABLET ONE (08:11)
[2020-09-10] MEDS: ACETAMINOPHEN 325 MG TABLET PO PRN (08:20)
[2020-09-10] MEDS: CLOPIDOGREL 75 MG TABLET PO SCH (08:20)
[2020-09-10] MEDS ORDERED: SODIUM CHLORIDE 0.9% 1,000 ML IV PRN (08:21)
[2020-09-10] MEDS: hydrALAZINE 25 MG TABLET PO SCH ×4 (08:47→21:32)
[2020-09-10] MEDS ORDERED: VANCOMYCIN INJ 1,500 MG in SODIUM CHLORIDE 0.9% 500 ML IV ONE (09:30)
[2020-09-10] MEDS ORDERED: HEPARIN 10,000 UNIT/10 ML VIAL IV PRN (09:57)
[2020-09-10] MEDS ORDERED: ALTEPLASE 2 MG VIAL INTRACATH ONE (10:00)
[2020-09-10 10:23] LABS: ABG Base Excess 9.3 MMOL/L (-2.5-2.5); ABG Oxygen Saturation 97.6 % (95-100); ABG PCO2 34.8 MM HG (35-48); ABG PH 7.572 (7.35-7.45); ABG PO2 87.4 MM HG (80-95); ABG TCO2 30.1 MMOL/L (23-27); Allen Test Positive; Pt O2 Delivery Device Ventilator
[2020-09-10] MEDS: MEROPENEM 500 MG in SODIUM CHLORIDE 0.9% 100 ML IV SCH (10:27)
[2020-09-10 18:08] LABS: Hemoglobin 8.5 GM/DL (14.0-18.0)
[2020-09-10] MEDS: AZITHROMYCIN INJ 500 MG in SODIUM CHLORIDE 0.9% 250 ML IV SCH (21:29)
[2020-09-10] MEDS: MENTHOL/ZINC OXIDE OINT 71 GM JAR TOP SCH (21:33)
[2020-09-11] MEDS: SODIUM CHLORIDE 0.9% 1,000 ML IV SCH ×3 (00:25→20:30)
[2020-09-11] MEDS: ACETAMINOPHEN 325 MG TABLET PO PRN (00:38)
[2020-09-11 04:25] LABS: ABG HCO3 29.8 MMOL/L (20-26); ABG Oxygen Saturation 99.4 % (95-100); ABG PCO2 30.6 MM HG (35-48); ABG TCO2 22.7 MMOL/L (23-27); Allen Test Positive; Pt O2 Delivery Device Ventilator
[2020-09-11 04:49] LABS: Basophils % 0.4 % (0.0-0.8); Eosinophils # 0.1 10*3/uL (0.0-0.87); Eosinophils % 1.1 % (0.00-10.9); Hemoglobin 8.2 GM/DL (14.0-18.0); Immature Granulocytes % 0.9 %; Immature Granulocytes Absolute 0.09 #; Lymphocytes # 0.5 10*3/uL (1.4-4.0); Lymphocytes % 4.7 % (21.2-54.2); Mean Corpuscular HGB Conc 34.2 GM/DL (32-36); Mean Corpuscular Volume 87.9 FL (87-102); Mean Platelet Volume 12.5 FL (9.6-12.0); Monocytes % 3.7 % (1.7-12.7); Neutrophils % 89.2 % (38.7-73.9); Red Blood Count 2.73 MC/CUMM (3.8-5.5); Red Cell Distribution Width 14.8 % (9.3-17.3); White Blood Count 10.6 T/CUMM (4-12)
[2020-09-11 04:55] LABS: Platelet Count 79 T/CUMM (130-400)
[2020-09-11 05:00] LABS: INR 1.1; PT Patient Result 11.8 SECS (9.8-11.9); Partial Thromboplastin Time 35.8 SECS (23.9-33.8)
[2020-09-11 05:12] LABS: Eosinophils 1 % (0-10); Lymphocytes 9 % (20-55); Nucleated Red Blood Cells 1 (0-5); Platelet Estimate Decreased; Segmented Neutrophils 88 % (50-85); Total Cells Counted 100
[2020-09-11 05:13] LABS: Hypochromasia 1+; Microcytosis 1+
[2020-09-11 05:16] LABS: Uric Acid 4.2 MG/DL (3.5-7.2)
[2020-09-11 05:20] LABS: Calcium 8.6 MG/DL (8.5-10.1); Osmolality,Calculated 306.7 MOS/KG (273-304)
[2020-09-11] MEDS ORDERED: BUPIVACAINE MPF 0.25% 30 ML VIAL ONE (06:49)
[2020-09-11] MEDS ORDERED: HEPARIN 5,000 UNIT/1 ML VIAL ONE (06:49)
[2020-09-11] MEDS ORDERED: LIDOCAINE 1%/EPI INJ 20 ML VIAL ONE (06:49)
[2020-09-11] MEDS ORDERED: ceFAZolin 1,000 MG VIAL ONE (07:34)
[2020-09-11] MEDS ORDERED: ROCURONIUM 100 MG/10 ML VIAL IV ONE (08:06)
[2020-09-11] MEDS ORDERED: MIDAZOLAM 2 MG/2 ML VIAL ONE (08:06)
[2020-09-11] MEDS ORDERED: VANCOMYCIN INJ 500 MG in SODIUM CHLORIDE 0.9% 100 ML IV PRN (08:49)
[2020-09-11] MEDS: FAMOTIDINE 20 MG/2 ML VIAL IV SCH (09:07)
[2020-09-11] MEDS: ISOSORBIDE MONONITRATE 30 MG TABLET PO SCH (09:10)
[2020-09-11] MEDS: MEROPENEM 500 MG in SODIUM CHLORIDE 0.9% 100 ML IV SCH (09:11)
[2020-09-11] MEDS: hydrALAZINE 25 MG TABLET PO SCH ×4 (09:11→20:30)
[2020-09-11] MEDS: MENTHOL/ZINC OXIDE OINT 71 GM JAR TOP SCH ×2 (09:13→20:30)
[2020-09-11] MEDS: amLODIPine 10 MG TABLET PO SCH (14:44)
[2020-09-11] MEDS: MIDAZOLAM 100 MG in SODIUM CHLORIDE 0.9% 80 ML IV PRN (14:49)
[2020-09-11] MEDS ORDERED: VANCOMYCIN INJ 500 MG in SODIUM CHLORIDE 0.9% 100 ML IV ONE (17:00)
[2020-09-11] MEDS: ALBUTEROL/IPRATROPIUM 3 ML NEB RESP TX PRN (19:30)
[2020-09-11] MEDS: AZITHROMYCIN INJ 500 MG in SODIUM CHLORIDE 0.9% 250 ML IV SCH (20:30)
[2020-09-12] MEDS: ALBUTEROL/IPRATROPIUM 3 ML NEB RESP TX PRN (01:44)
[2020-09-12 04:07] LABS: Allen Test Positive; Pt O2 Delivery Device Ventilator
[2020-09-12 04:17] LABS: Basophils % 0.2 % (0.0-0.8); Eosinophils # 0.1 10*3/uL (0.0-0.87); Eosinophils % 1.2 % (0.00-10.9); Hematocrit 25.6 VOL% (42.0-52.0); Hemoglobin 8.5 GM/DL (14.0-18.0); Immature Granulocytes % 1.3 %; Immature Granulocytes Absolute 0.15 #; Lymphocytes # 0.5 10*3/uL (1.4-4.0); Lymphocytes % 4.2 % (21.2-54.2); Mean Corpuscular HGB Conc 33.2 GM/DL (32-36); Mean Corpuscular Volume 90.5 FL (87-102); Mean Platelet Volume 12.2 FL (9.6-12.0); Monocytes % 6.8 % (1.7-12.7); NRBC # 0.02 10*3/uL; Neutrophils % 86.3 % (38.7-73.9); Platelet Count 91 T/CUMM (130-400); Red Blood Count 2.83 MC/CUMM (3.8-5.5); Red Cell Distribution Width 14.8 % (9.3-17.3); White Blood Count 11.7 T/CUMM (4-12)
[2020-09-12 04:19] LABS: ABG HCO3 24.9 MMOL/L (20-26); ABG PCO2 33.9 MM HG (35-48); ABG PH 7.484 (7.35-7.45); ABG PO2 178.3 MM HG (80-95); ABG TCO2 25.9 MMOL/L (23-27)
[2020-09-12 04:20] LABS: ABG Oxygen Saturation 99.3 % (95-100)
[2020-09-12 04:38] LABS: Calcium 8.7 MG/DL (8.5-10.1); Osmolality,Calculated 297.4 MOS/KG (273-304)
[2020-09-12 04:48] LABS: Eosinophils 2 % (0-10); Lymphocytes 2 % (20-55); Platelet Estimate Decreased; Segmented Neutrophils 92 % (50-85); Total Cells Counted 100
[2020-09-12 04:49] LABS: Hypochromasia 1+; Microcytosis 1+; Ovalocytes Slight
[2020-09-12] MEDS: SODIUM CHLORIDE 0.9% 1,000 ML IV SCH ×2 (06:25→16:26)
[2020-09-12] MEDS: amLODIPine 10 MG TABLET PO SCH (08:00)
[2020-09-12] MEDS: ISOSORBIDE MONONITRATE 30 MG TABLET PO SCH (08:01)
[2020-09-12] MEDS: hydrALAZINE 25 MG TABLET PO SCH ×4 (08:01→21:36)
[2020-09-12] MEDS: FAMOTIDINE 20 MG/2 ML VIAL IV SCH (08:03)
[2020-09-12] MEDS: MEROPENEM 500 MG in SODIUM CHLORIDE 0.9% 100 ML IV SCH (08:12)
[2020-09-12] MEDS: MENTHOL/ZINC OXIDE OINT 71 GM JAR TOP SCH ×2 (08:12→21:36)
[2020-09-12] MEDS: carvediloL 3.125 MG TABLET PO SCH ×2 (09:06→21:35)
[2020-09-12] MEDS: ALBUTEROL/IPRATROPIUM 3 ML NEB RESP TX SCH ×2 (13:09→18:51)
[2020-09-12] MEDS ORDERED: VANCOMYCIN INJ 500 MG in SODIUM CHLORIDE 0.9% 100 ML IV ONE (17:00)
[2020-09-12] MEDS: ACETAMINOPHEN 325 MG TABLET PO PRN (23:31)
[2020-09-13] MEDS: ALBUTEROL/IPRATROPIUM 3 ML NEB RESP TX SCH ×4 (01:36→19:12)
[2020-09-13] MEDS: SODIUM CHLORIDE 0.9% 1,000 ML IV SCH ×2 (02:26→12:15)
[2020-09-13 03:27] LABS: ABG Base Excess 3.5 MMOL/L (-2.5-2.5); ABG HCO3 27.6 MMOL/L (20-26); ABG Oxygen Saturation 99.9 % (95-100); ABG PCO2 35.3 MM HG (35-48); ABG PH 7.489 (7.35-7.45); ABG TCO2 25.1 MMOL/L (23-27); Allen Test Positive; Pt O2 Delivery Device Ventilator
[2020-09-13 05:02] LABS: Basophils % 0.2 % (0.0-0.8); Eosinophils # 0.2 10*3/uL (0.0-0.87); Hematocrit 23.7 VOL% (42.0-52.0); Hemoglobin 7.8 GM/DL (14.0-18.0); Immature Granulocytes % 1.1 %; Immature Granulocytes Absolute 0.19 #; Lymphocytes # 0.6 10*3/uL (1.4-4.0); Lymphocytes % 3.6 % (21.2-54.2); Mean Corpuscular HGB Conc 32.9 GM/DL (32-36); Mean Corpuscular Volume 90.1 FL (87-102); Mean Platelet Volume 12.8 FL (9.6-12.0); Monocytes % 6.6 % (1.7-12.7); Neutrophils % 87.5 % (38.7-73.9); Platelet Count 104 T/CUMM (130-400); Red Blood Count 2.63 MC/CUMM (3.8-5.5); Red Cell Distribution Width 14.8 % (9.3-17.3); White Blood Count 16.6 T/CUMM (4-12)
[2020-09-13 05:16] LABS: Calcium 8.4 MG/DL (8.5-10.1); Osmolality,Calculated 296.3 MOS/KG (273-304)
[2020-09-13 05:25] LABS: Eosinophils 1 % (0-10); Hypochromasia 2+; Lymphocytes 2 % (20-55); Microcytosis 1+; Ovalocytes Slight; Platelet Estimate Decreased; Segmented Neutrophils 92 % (50-85); Total Cells Counted 100
[2020-09-13 05:41] LABS: INR 1.1; PT Patient Result 12.1 SECS (9.8-11.9)
[2020-09-13] MEDS: MIDAZOLAM 100 MG in SODIUM CHLORIDE 0.9% 80 ML IV PRN (05:49)
[2020-09-13] MEDS: FAMOTIDINE 20 MG/2 ML VIAL IV SCH (08:38)
[2020-09-13] MEDS: MEROPENEM 500 MG in SODIUM CHLORIDE 0.9% 100 ML IV SCH (08:39)
[2020-09-13] MEDS: hydrALAZINE 25 MG TABLET PO SCH ×4 (08:42→20:54)
[2020-09-13] MEDS: MENTHOL/ZINC OXIDE OINT 71 GM JAR TOP SCH (08:42)
[2020-09-13] MEDS: amLODIPine 10 MG TABLET PO SCH (08:43)
[2020-09-13] MEDS: carvediloL 3.125 MG TABLET PO SCH ×2 (08:43→20:54)
[2020-09-13] MEDS: ISOSORBIDE MONONITRATE 30 MG TABLET PO SCH (08:43)
[2020-09-13] MEDS ORDERED: VANCOMYCIN INJ 500 MG in SODIUM CHLORIDE 0.9% 100 ML IV ONE (17:00)
[2020-09-14] MEDS: ALBUTEROL/IPRATROPIUM 3 ML NEB RESP TX SCH ×4 (01:16→19:35)
[2020-09-14] MEDS: SODIUM CHLORIDE 0.9% 1,000 ML IV SCH ×2 (02:33→18:05)
[2020-09-14 04:17] LABS: ABG Base Excess 2.7 MMOL/L (-2.5-2.5); ABG HCO3 26.9 MMOL/L (20-26); ABG Oxygen Saturation 99.5 % (95-100); ABG PCO2 37.4 MM HG (35-48); ABG PH 7.459 (7.35-7.45); ABG TCO2 24.1 MMOL/L (23-27); Allen Test Positive; Pt O2 Delivery Device Ventilator
[2020-09-14 04:27] LABS: Basophils % 0.2 % (0.0-0.8); Eosinophils # 0.1 10*3/uL (0.0-0.87); Eosinophils % 0.6 % (0.00-10.9); Hematocrit 23.2 VOL% (42.0-52.0); Hemoglobin 7.4 GM/DL (14.0-18.0); Immature Granulocytes Absolute 0.19 #; Lymphocytes # 0.6 10*3/uL (1.4-4.0); Mean Corpuscular HGB Conc 31.9 GM/DL (32-36); Monocytes % 7.1 % (1.7-12.7); Neutrophils % 88.1 % (38.7-73.9); Platelet Count 159 T/CUMM (130-400); Red Blood Count 2.55 MC/CUMM (3.8-5.5); Red Cell Distribution Width 14.6 % (9.3-17.3); White Blood Count 18.9 T/CUMM (4-12)
[2020-09-14] MEDS: MENTHOL/ZINC OXIDE OINT 71 GM JAR TOP SCH ×3 (04:37→21:31)
[2020-09-14 04:44] LABS: Albumin 1.7 G/DL (3.4-5.0); Bilirubin,Total 1.2 MG/DL (0.2-1.0); Calcium 8.4 MG/DL (8.5-10.1); Osmolality,Calculated 291.5 MOS/KG (273-304); Total Protein 5.8 G/DL (6.4-8.3)
[2020-09-14] MEDS: MEROPENEM 500 MG in SODIUM CHLORIDE 0.9% 100 ML IV SCH (08:27)
[2020-09-14] MEDS: FAMOTIDINE 20 MG/2 ML VIAL IV SCH (08:34)
[2020-09-14] MEDS: amLODIPine 10 MG TABLET PO SCH (08:34)
[2020-09-14] MEDS: ISOSORBIDE MONONITRATE 30 MG TABLET PO SCH (08:34)
[2020-09-14] MEDS: hydrALAZINE 25 MG TABLET PO SCH ×4 (08:35→21:30)
[2020-09-14] MEDS: carvediloL 3.125 MG TABLET PO SCH ×2 (08:35→21:30)
[2020-09-14 09:39] LABS: Hypochromasia Slight; Lymphocytes 3 % (20-55); Platelet Estimate Normal; Segmented Neutrophils 91 % (50-85); Total Cells Counted 100
[2020-09-14] MEDS: PANTOPRAZOLE 40 MG VIAL IV SCH ×2 (14:04→21:32)
[2020-09-14] MEDS: ACETAMINOPHEN 325 MG TABLET PO PRN (21:30)
[2020-09-15] MEDS: ALBUTEROL/IPRATROPIUM 3 ML NEB RESP TX SCH ×4 (01:02→19:08)
[2020-09-15] MEDS: DEXMEDETOMIDINE 200 MCG in SODIUM CHLORIDE 0.9% 48 ML IV PRN ×2 (04:34→15:01)
[2020-09-15 04:46] LABS: Basophils % 0.1 % (0.0-0.8); Eosinophils # 0.1 10*3/uL (0.0-0.87); Eosinophils % 0.7 % (0.00-10.9); Hematocrit 22.4 VOL% (42.0-52.0); Hemoglobin 7.3 GM/DL (14.0-18.0); Immature Granulocytes % 1.2 %; Immature Granulocytes Absolute 0.23 #; Lymphocytes # 0.7 10*3/uL (1.4-4.0); Lymphocytes % 3.6 % (21.2-54.2); Mean Corpuscular HGB Conc 32.6 GM/DL (32-36); Mean Corpuscular Volume 91.4 FL (87-102); Mean Platelet Volume 11.6 FL (9.6-12.0); Monocytes % 5.8 % (1.7-12.7); Neutrophils % 88.6 % (38.7-73.9); Platelet Count 227 T/CUMM (130-400); Red Blood Count 2.45 MC/CUMM (3.8-5.5); Red Cell Distribution Width 14.5 % (9.3-17.3); White Blood Count 19.1 T/CUMM (4-12)
[2020-09-15 05:00] LABS: ABG Base Excess -0.6 MMOL/L (-2.5-2.5); ABG HCO3 23.2 MMOL/L (20-26); ABG Oxygen Saturation 97.4 % (95-100); ABG PCO2 34.6 MM HG (35-48); ABG PH 7.445 (7.35-7.45); ABG PO2 98.2 MM HG (80-95); ABG TCO2 24.3 MMOL/L (23-27); Allen Test Positive; Pt O2 Delivery Device Ventilator
[2020-09-15 05:20] LABS: Calcium 7.9 MG/DL (8.5-10.1); Osmolality,Calculated 297.8 MOS/KG (273-304)
[2020-09-15 06:04] LABS: Lymphocytes 2 % (20-55); Platelet Estimate Normal; Segmented Neutrophils 95 % (50-85); Total Cells Counted 100
[2020-09-15 06:05] LABS: Microcytosis Slight
[2020-09-15 06:06] LABS: Schistocytes Few; Target Cells Few
[2020-09-15] MEDS: SODIUM CHLORIDE 0.9% 1,000 ML IV SCH ×2 (08:35→22:53)
[2020-09-15] MEDS: MEROPENEM 500 MG in SODIUM CHLORIDE 0.9% 100 ML IV SCH (08:36)
[2020-09-15] MEDS: PANTOPRAZOLE 40 MG VIAL IV SCH ×2 (08:40→21:13)
[2020-09-15] MEDS: ACETAMINOPHEN 325 MG TABLET PO PRN (08:43)
[2020-09-15] MEDS: ISOSORBIDE MONONITRATE 30 MG TABLET PO SCH (08:44)
[2020-09-15] MEDS: amLODIPine 10 MG TABLET PO SCH (08:44)
[2020-09-15] MEDS: ASPIRIN CHEW 81 MG TABLET PO SCH (08:44)
[2020-09-15] MEDS: carvediloL 3.125 MG TABLET PO SCH ×2 (08:44→21:14)
[2020-09-15] MEDS: hydrALAZINE 25 MG TABLET PO SCH ×4 (08:45→21:14)
[2020-09-15] MEDS: MENTHOL/ZINC OXIDE OINT 71 GM JAR TOP SCH ×2 (08:45→21:14)
[2020-09-15] MEDS ORDERED: SODIUM POLYSTYRENE SULFATE 15 GM/60 ML BOTTLE PO STA (09:25)
[2020-09-15] MEDS ORDERED: SODIUM CHLORIDE 0.9% 1,000 ML IV PRN (09:26)
[2020-09-16] MEDS: ALBUTEROL/IPRATROPIUM 3 ML NEB RESP TX SCH ×4 (02:17→19:10)
[2020-09-16] MEDS: DEXMEDETOMIDINE 200 MCG in SODIUM CHLORIDE 0.9% 48 ML IV PRN ×3 (03:39→17:43)
[2020-09-16 04:25] LABS: ABG Base Excess -2.5 MMOL/L (-2.5-2.5); ABG HCO3 21.5 MMOL/L (20-26); ABG Oxygen Saturation 98.8 % (95-100); ABG PCO2 32.9 MM HG (35-48); ABG PH 7.433 (7.35-7.45); ABG PO2 158.8 MM HG (80-95); ABG TCO2 22.5 MMOL/L (23-27); Allen Test Positive; Pt O2 Delivery Device Ventilator
[2020-09-16 05:09] LABS: Basophils % 0.2 % (0.0-0.8); Eosinophils # 0.1 10*3/uL (0.0-0.87); Eosinophils % 0.7 % (0.00-10.9); Hematocrit 18.1 VOL% (42.0-52.0); Immature Granulocytes % 1.3 %; Immature Granulocytes Absolute 0.23 #; Lymphocytes # 0.4 10*3/uL (1.4-4.0); Lymphocytes % 2.3 % (21.2-54.2); Mean Corpuscular HGB Conc 32.6 GM/DL (32-36); Mean Corpuscular Volume 91.9 FL (87-102); Mean Platelet Volume 11.6 FL (9.6-12.0); Monocytes % 4.3 % (1.7-12.7); Neutrophils % 91.2 % (38.7-73.9); Platelet Count 244 T/CUMM (130-400); Red Blood Count 1.97 MC/CUMM (3.8-5.5); Red Cell Distribution Width 14.6 % (9.3-17.3); White Blood Count 18.4 T/CUMM (4-12)
[2020-09-16 05:25] LABS: Hemoglobin 5.9 GM/DL (14.0-18.0)
[2020-09-16 05:33] LABS: Calcium 7.7 MG/DL (8.5-10.1); Osmolality,Calculated 313.1 MOS/KG (273-304)
[2020-09-16 05:37] LABS: Band Neutrophils 1 % (0-10); Lymphocytes 2 % (20-55); Segmented Neutrophils 94 % (50-85); Total Cells Counted 100
[2020-09-16 05:38] LABS: Hypochromasia 1+; Microcytosis 1+
[2020-09-16 05:39] LABS: Platelet Estimate Normal
[2020-09-16] MEDS: hydrALAZINE 25 MG TABLET PO SCH ×4 (10:24→23:29)
[2020-09-16] MEDS: amLODIPine 10 MG TABLET PO SCH (10:32)
[2020-09-16] MEDS: carvediloL 3.125 MG TABLET PO SCH ×2 (10:32→20:10)
[2020-09-16] MEDS: ASPIRIN CHEW 81 MG TABLET PO SCH (10:32)
[2020-09-16] MEDS: MENTHOL/ZINC OXIDE OINT 71 GM JAR TOP SCH ×2 (10:32→21:30)
[2020-09-16] MEDS: PANTOPRAZOLE 40 MG VIAL IV SCH ×2 (10:33→20:10)
[2020-09-16] MEDS: MEROPENEM 500 MG in SODIUM CHLORIDE 0.9% 100 ML IV SCH (10:52)
[2020-09-16 11:54] LABS: Hematocrit 21.4 VOL% (42.0-52.0); Hemoglobin 6.9 GM/DL (14.0-18.0)
[2020-09-16] MEDS: ISOSORBIDE MONONITRATE 30 MG TABLET PO SCH (12:32)
[2020-09-16] MEDS: LEVOFLOXACIN INJ 250 MG in PREMIX 1 EACH IV SCH (12:32)
[2020-09-16] MEDS: SODIUM CHLORIDE 0.9% 1,000 ML IV SCH (13:30)
[2020-09-16] MEDS ORDERED: VANCOMYCIN INJ 500 MG in SODIUM CHLORIDE 0.9% 100 ML IV ONE (17:00)
[2020-09-17] MEDS: ALBUTEROL/IPRATROPIUM 3 ML NEB RESP TX SCH ×4 (01:34→19:21)
[2020-09-17 04:22] LABS: ABG Base Excess -0.4 MMOL/L (-2.5-2.5); ABG HCO3 24.1 MMOL/L (20-26); ABG Oxygen Saturation 99.3 % (95-100); ABG PCO2 38.3 MM HG (35-48); ABG PH 7.407 (7.35-7.45); ABG TCO2 22.7 MMOL/L (23-27)
[2020-09-17] MEDS: DEXMEDETOMIDINE 200 MCG in SODIUM CHLORIDE 0.9% 48 ML IV PRN ×4 (04:30→21:02)
[2020-09-17 05:53] LABS: Basophils % 0.2 % (0.0-0.8); Eosinophils # 0.1 10*3/uL (0.0-0.87); Hematocrit 20.5 VOL% (42.0-52.0); Hemoglobin 6.7 GM/DL (14.0-18.0); Immature Granulocytes Absolute 0.14 #; Lymphocytes # 0.7 10*3/uL (1.4-4.0); Lymphocytes % 5.1 % (21.2-54.2); Mean Corpuscular HGB Conc 32.7 GM/DL (32-36); Mean Corpuscular Volume 90.7 FL (87-102); Mean Platelet Volume 11.3 FL (9.6-12.0); Monocytes % 6.1 % (1.7-12.7); Neutrophils % 86.6 % (38.7-73.9); Platelet Count 297 T/CUMM (130-400); Red Blood Count 2.26 MC/CUMM (3.8-5.5); Red Cell Distribution Width 15.2 % (9.3-17.3); White Blood Count 13.9 T/CUMM (4-12)
[2020-09-17 06:35] LABS: Osmolality,Calculated 297.5 MOS/KG (273-304)
[2020-09-17] MEDS: SODIUM CHLORIDE 0.9% 1,000 ML IV SCH ×3 (06:40→22:01)
[2020-09-17] MEDS: amLODIPine 10 MG TABLET PO SCH (09:58)
[2020-09-17] MEDS: hydrALAZINE 25 MG TABLET PO SCH ×4 (09:58→21:02)
[2020-09-17] MEDS: PANTOPRAZOLE 40 MG VIAL IV SCH ×2 (09:59→21:03)
[2020-09-17] MEDS: MENTHOL/ZINC OXIDE OINT 71 GM JAR TOP SCH ×2 (09:59→21:03)
[2020-09-17] MEDS: ASPIRIN CHEW 81 MG TABLET PO SCH (09:59)
[2020-09-17] MEDS: carvediloL 3.125 MG TABLET PO SCH ×2 (09:59→21:02)
[2020-09-17] MEDS: ISOSORBIDE MONONITRATE 30 MG TABLET PO SCH (09:59)
[2020-09-17] MEDS: MEROPENEM 500 MG in SODIUM CHLORIDE 0.9% 100 ML IV SCH (10:01)
[2020-09-17] MEDS ORDERED: SODIUM CHLORIDE 0.9% 1,000 ML IV PRN (17:07)
[2020-09-18] MEDS: ALBUTEROL/IPRATROPIUM 3 ML NEB RESP TX SCH ×4 (01:49→19:11)
[2020-09-18] MEDS: DEXMEDETOMIDINE 200 MCG in SODIUM CHLORIDE 0.9% 48 ML IV PRN ×5 (03:40→22:22)
[2020-09-18 03:51] LABS: ABG Base Excess -2.7 MMOL/L (-2.5-2.5); ABG HCO3 22.1 MMOL/L (20-26); ABG Oxygen Saturation 99.1 % (95-100); ABG PCO2 36.2 MM HG (35-48); ABG PH 7.389 (7.35-7.45); ABG TCO2 20.6 MMOL/L (23-27); Allen Test Positive; Pt O2 Delivery Device Ventilator
[2020-09-18 04:46] LABS: Basophils % 0.2 % (0.0-0.8); Eosinophils # 0.2 10*3/uL (0.0-0.87); Eosinophils % 1.3 % (0.00-10.9); Hematocrit 21.2 VOL% (42.0-52.0); Hemoglobin 6.9 GM/DL (14.0-18.0); Immature Granulocytes % 1.2 %; Immature Granulocytes Absolute 0.14 #; Lymphocytes # 0.8 10*3/uL (1.4-4.0); Lymphocytes % 6.5 % (21.2-54.2); Mean Corpuscular HGB Conc 32.5 GM/DL (32-36); Mean Corpuscular Volume 92.2 FL (87-102); Mean Platelet Volume 11.4 FL (9.6-12.0); Monocytes % 6.4 % (1.7-12.7); Neutrophils % 84.4 % (38.7-73.9); Platelet Count 412 T/CUMM (130-400); White Blood Count 12.2 T/CUMM (4-12)
[2020-09-18 05:10] LABS: Calcium 8.1 MG/DL (8.5-10.1); Osmolality,Calculated 303.7 MOS/KG (273-304)
[2020-09-18] MEDS: ISOSORBIDE MONONITRATE 30 MG TABLET PO SCH (09:55)
[2020-09-18] MEDS: SODIUM CHLORIDE 0.9% 1,000 ML IV SCH ×2 (09:55→22:23)
[2020-09-18] MEDS: MENTHOL/ZINC OXIDE OINT 71 GM JAR TOP SCH ×2 (09:55→20:36)
[2020-09-18] MEDS: carvediloL 3.125 MG TABLET PO SCH ×2 (09:55→20:37)
[2020-09-18] MEDS: MEROPENEM 500 MG in SODIUM CHLORIDE 0.9% 100 ML IV SCH (09:55)
[2020-09-18] MEDS: hydrALAZINE 25 MG TABLET PO SCH ×4 (09:55→20:36)
[2020-09-18] MEDS: ASPIRIN CHEW 81 MG TABLET PO SCH (09:55)
[2020-09-18] MEDS: amLODIPine 10 MG TABLET PO SCH (09:56)
[2020-09-18] MEDS: PANTOPRAZOLE 40 MG VIAL IV SCH ×2 (09:56→20:35)
[2020-09-18] MEDS: LEVOFLOXACIN INJ 250 MG in PREMIX 1 EACH IV SCH (14:30)
[2020-09-19] MEDS: ALBUTEROL/IPRATROPIUM 3 ML NEB RESP TX SCH ×4 (00:53→19:01)
[2020-09-19] MEDS: SODIUM CHLORIDE 0.9% 1,000 ML IV SCH (01:56)
[2020-09-19] MEDS: DEXMEDETOMIDINE 400 MCG in SODIUM CHLORIDE 0.9% 96 ML IV PRN ×4 (02:21→23:45)
[2020-09-19 04:33] LABS: ABG Base Excess 0.2 MMOL/L (-2.5-2.5); ABG HCO3 24.7 MMOL/L (20-26); ABG PCO2 37.3 MM HG (35-48); ABG PH 7.424 (7.35-7.45); ABG TCO2 22.1 MMOL/L (23-27); Allen Test Positive; Pt O2 Delivery Device Ventilator
[2020-09-19 05:53] LABS: Calcium 8.4 MG/DL (8.5-10.1); Osmolality,Calculated 295.5 MOS/KG (273-304)
[2020-09-19 06:48] LABS: Eosinophils # 0.2 10*3/uL (0.0-0.87); Eosinophils % 1.5 % (0.00-10.9); Monocytes % 8.5 % (1.7-12.7)
[2020-09-19 06:56] LABS: Basophils % 0.2 % (0.0-0.8); Hematocrit 25.9 VOL% (42.0-52.0); Immature Granulocytes % 1.1 %; Immature Granulocytes Absolute 0.11 #; Lymphocytes # 0.7 10*3/uL (1.4-4.0); Mean Corpuscular HGB Conc 32.8 GM/DL (32-36); Mean Corpuscular Volume 88.7 FL (87-102); Mean Platelet Volume 11.4 FL (9.6-12.0); Neutrophils % 81.7 % (38.7-73.9); Platelet Count 414 T/CUMM (130-400); Red Cell Distribution Width 15.9 % (9.3-17.3); White Blood Count 9.9 T/CUMM (4-12)
[2020-09-19 06:58] LABS: Red Blood Count 2.92 MC/CUMM (3.8-5.5)
[2020-09-19 06:59] LABS: Hemoglobin 8.5 GM/DL (14.0-18.0)
[2020-09-19] MEDS: hydrALAZINE 25 MG TABLET PO SCH ×4 (08:28→20:19)
[2020-09-19] MEDS: MENTHOL/ZINC OXIDE OINT 71 GM JAR TOP SCH ×2 (08:28→20:20)
[2020-09-19] MEDS: ASPIRIN CHEW 81 MG TABLET PO SCH (08:28)
[2020-09-19] MEDS: carvediloL 3.125 MG TABLET PO SCH ×2 (08:28→20:20)
[2020-09-19] MEDS: amLODIPine 10 MG TABLET PO SCH (08:29)
[2020-09-19] MEDS: MEROPENEM 500 MG in SODIUM CHLORIDE 0.9% 100 ML IV SCH (08:29)
[2020-09-19] MEDS: PANTOPRAZOLE 40 MG VIAL IV SCH ×2 (08:29→20:20)
[2020-09-19] MEDS: ISOSORBIDE MONONITRATE 30 MG TABLET PO SCH (08:29)
[2020-09-20] MEDS: ALBUTEROL/IPRATROPIUM 3 ML NEB RESP TX SCH ×4 (00:51→19:24)
[2020-09-20 04:20] LABS: ABG Base Excess 1.4 MMOL/L (-2.5-2.5); ABG HCO3 26.6 MMOL/L (20-26); ABG Oxygen Saturation 97.4 % (95-100); ABG PCO2 44.5 MM HG (35-48); ABG PH 7.394 (7.35-7.45); ABG PO2 105.6 MM HG (80-95); ABG TCO2 27.9 MMOL/L (23-27); Allen Test Positive; Pt O2 Delivery Device Ventilator
[2020-09-20] MEDS ORDERED: MORPHINE 4 MG/1 ML VIAL IV PRN (04:21)
[2020-09-20 05:41] LABS: Basophils % 0.4 % (0.0-0.8); Eosinophils # 0.1 10*3/uL (0.0-0.87); Hematocrit 26.4 VOL% (42.0-52.0); Hemoglobin 8.8 GM/DL (14.0-18.0); Immature Granulocytes % 1.1 %; Immature Granulocytes Absolute 0.11 #; Lymphocytes # 0.7 10*3/uL (1.4-4.0); Lymphocytes % 6.8 % (21.2-54.2); Mean Corpuscular HGB Conc 33.3 GM/DL (32-36); Mean Corpuscular Volume 88.9 FL (87-102); Mean Platelet Volume 10.8 FL (9.6-12.0); Monocytes % 9.7 % (1.7-12.7); Platelet Count 439 T/CUMM (130-400); Red Blood Count 2.97 MC/CUMM (3.8-5.5); Red Cell Distribution Width 15.2 % (9.3-17.3); White Blood Count 10.1 T/CUMM (4-12)
[2020-09-20 06:01] LABS: Calcium 8.5 MG/DL (8.5-10.1); Osmolality,Calculated 285.8 MOS/KG (273-304)
[2020-09-20] MEDS: DEXMEDETOMIDINE 400 MCG in SODIUM CHLORIDE 0.9% 96 ML IV PRN ×3 (08:22→22:15)
[2020-09-20] MEDS: SEVELAMER CARBONATE POWDER 2.4 GM PACK PO SCH ×3 (08:23→17:58)
[2020-09-20] MEDS: hydrALAZINE 25 MG TABLET PO SCH ×4 (08:23→20:34)
[2020-09-20] MEDS: ISOSORBIDE MONONITRATE 30 MG TABLET PO SCH (08:24)
[2020-09-20] MEDS: ASPIRIN CHEW 81 MG TABLET PO SCH (08:24)
[2020-09-20] MEDS: carvediloL 3.125 MG TABLET PO SCH ×2 (08:24→20:34)
[2020-09-20] MEDS: MEROPENEM 500 MG in SODIUM CHLORIDE 0.9% 100 ML IV SCH (08:24)
[2020-09-20] MEDS: amLODIPine 10 MG TABLET PO SCH (08:24)
[2020-09-20] MEDS: MENTHOL/ZINC OXIDE OINT 71 GM JAR TOP SCH ×2 (08:24→20:34)
[2020-09-20] MEDS: PANTOPRAZOLE 40 MG VIAL IV SCH ×2 (08:24→20:34)
[2020-09-20] MEDS: LEVOFLOXACIN INJ 250 MG in PREMIX 1 EACH IV SCH (11:39)
[2020-09-21] MEDS: ALBUTEROL/IPRATROPIUM 3 ML NEB RESP TX SCH ×4 (00:51→19:18)
[2020-09-21 03:17] LABS: ABG Base Excess 3.1 MMOL/L (-2.5-2.5); ABG HCO3 27.2 MMOL/L (20-26); ABG Oxygen Saturation 97.9 % (95-100); ABG PCO2 38.2 MM HG (35-48); ABG PH 7.458 (7.35-7.45); ABG PO2 98.2 MM HG (80-95); ABG TCO2 25.1 MMOL/L (23-27); Allen Test Positive; Pt O2 Delivery Device Ventilator
[2020-09-21 03:45] LABS: Basophils % 0.3 % (0.0-0.8); Eosinophils # 0.1 10*3/uL (0.0-0.87); Eosinophils % 1.2 % (0.00-10.9); Hematocrit 24.9 VOL% (42.0-52.0); Hemoglobin 8.1 GM/DL (14.0-18.0); Immature Granulocytes % 0.9 %; Immature Granulocytes Absolute 0.08 #; Lymphocytes # 0.7 10*3/uL (1.4-4.0); Lymphocytes % 7.9 % (21.2-54.2); Mean Corpuscular HGB Conc 32.5 GM/DL (32-36); Mean Corpuscular Volume 90.9 FL (87-102); Mean Platelet Volume 10.8 FL (9.6-12.0); Monocytes % 10.3 % (1.7-12.7); Neutrophils % 79.4 % (38.7-73.9); Platelet Count 418 T/CUMM (130-400); Red Blood Count 2.74 MC/CUMM (3.8-5.5); Red Cell Distribution Width 14.8 % (9.3-17.3)
[2020-09-21 04:00] LABS: Calcium 8.2 MG/DL (8.5-10.1); Osmolality,Calculated 281.1 MOS/KG (273-304)
[2020-09-21] MEDS: DEXMEDETOMIDINE 400 MCG in SODIUM CHLORIDE 0.9% 96 ML IV PRN ×2 (05:10→12:36)
[2020-09-21] MEDS: SEVELAMER CARBONATE POWDER 2.4 GM PACK PO SCH ×3 (10:07→16:30)
[2020-09-21] MEDS: ISOSORBIDE MONONITRATE 30 MG TABLET PO SCH (10:07)
[2020-09-21] MEDS: hydrALAZINE 25 MG TABLET PO SCH ×4 (10:07→21:14)
[2020-09-21] MEDS: carvediloL 3.125 MG TABLET PO SCH ×2 (10:07→21:14)
[2020-09-21] MEDS: ASPIRIN CHEW 81 MG TABLET PO SCH (10:08)
[2020-09-21] MEDS: PANTOPRAZOLE 40 MG VIAL IV SCH ×2 (10:13→21:15)
[2020-09-21] MEDS: MEROPENEM 500 MG in SODIUM CHLORIDE 0.9% 100 ML IV SCH (10:13)
[2020-09-21] MEDS: MENTHOL/ZINC OXIDE OINT 71 GM JAR TOP SCH ×2 (10:16→21:14)
[2020-09-21] MEDS: amLODIPine 10 MG TABLET PO SCH (10:17)
[2020-09-22] MEDS: DEXMEDETOMIDINE 400 MCG in SODIUM CHLORIDE 0.9% 96 ML IV PRN (01:17)
[2020-09-22] MEDS: ALBUTEROL/IPRATROPIUM 3 ML NEB RESP TX SCH ×4 (01:55→19:30)
[2020-09-22 03:06] LABS: ABG Base Excess 1.4 MMOL/L (-2.5-2.5); ABG HCO3 25.2 MMOL/L (20-26); ABG PCO2 36.7 MM HG (35-48); ABG PH 7.455 (7.35-7.45); ABG PO2 111.2 MM HG (80-95); ABG TCO2 26.4 MMOL/L (23-27); Allen Test Positive; Pt O2 Delivery Device Ventilator
[2020-09-22 04:05] LABS: Basophils % 0.3 % (0.0-0.8); Eosinophils # 0.1 10*3/uL (0.0-0.87); Eosinophils % 1.1 % (0.00-10.9); Hematocrit 25.9 VOL% (42.0-52.0); Hemoglobin 8.3 GM/DL (14.0-18.0); Immature Granulocytes % 1.1 %; Immature Granulocytes Absolute 0.12 #; Lymphocytes % 8.5 % (21.2-54.2); Mean Corpuscular Volume 90.9 FL (87-102); Mean Platelet Volume 10.4 FL (9.6-12.0); Monocytes % 10.9 % (1.7-12.7); Neutrophils % 78.1 % (38.7-73.9); Platelet Count 492 T/CUMM (130-400); Red Blood Count 2.85 MC/CUMM (3.8-5.5); Red Cell Distribution Width 14.6 % (9.3-17.3); White Blood Count 11.3 T/CUMM (4-12)
[2020-09-22 04:24] LABS: Calcium 8.2 MG/DL (8.5-10.1)
[2020-09-22] MEDS: SEVELAMER CARBONATE POWDER 2.4 GM PACK PO SCH ×3 (08:24→17:10)
[2020-09-22] MEDS: MEROPENEM 500 MG in SODIUM CHLORIDE 0.9% 100 ML IV SCH (08:24)
[2020-09-22] MEDS: carvediloL 3.125 MG TABLET PO SCH ×2 (08:24→20:33)
[2020-09-22] MEDS: ASPIRIN CHEW 81 MG TABLET PO SCH (08:24)
[2020-09-22] MEDS: ISOSORBIDE MONONITRATE 30 MG TABLET PO SCH (08:24)
[2020-09-22] MEDS: amLODIPine 10 MG TABLET PO SCH (08:24)
[2020-09-22] MEDS: SCOPOLAMINE 1.5 MG PATCH TRANSDERM SCH (08:25)
[2020-09-22] MEDS: hydrALAZINE 25 MG TABLET PO SCH ×4 (08:25→20:33)
[2020-09-22] MEDS: MENTHOL/ZINC OXIDE OINT 71 GM JAR TOP SCH ×2 (08:25→20:39)
[2020-09-22] MEDS: PANTOPRAZOLE 40 MG VIAL IV SCH ×2 (08:25→20:34)
[2020-09-22] MEDS: LEVOFLOXACIN INJ 250 MG in PREMIX 1 EACH IV SCH (13:54)
[2020-09-23] MEDS: LABETALOL 20 MG/4 ML SYRINGE IV PRN ×2 (01:10→05:12)
[2020-09-23] MEDS: ALBUTEROL/IPRATROPIUM 3 ML NEB RESP TX SCH ×4 (01:11→19:32)
[2020-09-23 03:07] LABS: ABG Base Excess 1.6 MMOL/L (-2.5-2.5); ABG HCO3 25.7 MMOL/L (20-26); ABG Oxygen Saturation 94.2 % (95-100); ABG PCO2 33.1 MM HG (35-48); ABG PH 7.477 (7.35-7.45); ABG PO2 70.8 MM HG (80-95); Allen Test Positive
[2020-09-23 04:54] LABS: Basophils # 0.1 10*3/uL (0.0-0.2); Basophils % 0.6 % (0.0-0.8); Eosinophils # 0.1 10*3/uL (0.0-0.87); Eosinophils % 0.5 % (0.00-10.9); Hematocrit 28.2 VOL% (42.0-52.0); Hemoglobin 9.1 GM/DL (14.0-18.0); Immature Granulocytes % 0.7 %; Lymphocytes # 0.9 10*3/uL (1.4-4.0); Lymphocytes % 6.4 % (21.2-54.2); Mean Corpuscular HGB Conc 32.3 GM/DL (32-36); Mean Corpuscular Volume 90.4 FL (87-102); Mean Platelet Volume 10.2 FL (9.6-12.0); Monocytes % 11.6 % (1.7-12.7); Neutrophils % 80.2 % (38.7-73.9); Platelet Count 627 T/CUMM (130-400); Red Blood Count 3.12 MC/CUMM (3.8-5.5); Red Cell Distribution Width 14.5 % (9.3-17.3); White Blood Count 13.7 T/CUMM (4-12)
[2020-09-23 05:03] LABS: Calcium 8.6 MG/DL (8.5-10.1)
[2020-09-23] MEDS: SEVELAMER CARBONATE POWDER 2.4 GM PACK PO SCH ×3 (09:57→17:00)
[2020-09-23] MEDS: ISOSORBIDE MONONITRATE 30 MG TABLET PO SCH (09:57)
[2020-09-23] MEDS: carvediloL 3.125 MG TABLET PO SCH ×2 (09:58→21:00)
[2020-09-23] MEDS: ACETAMINOPHEN 325 MG TABLET PO PRN (09:58)
[2020-09-23] MEDS: ASPIRIN CHEW 81 MG TABLET PO SCH (09:58)
[2020-09-23] MEDS: MENTHOL/ZINC OXIDE OINT 71 GM JAR TOP SCH ×2 (09:59→21:00)
[2020-09-23] MEDS: amLODIPine 10 MG TABLET PO SCH (10:01)
[2020-09-23] MEDS: hydrALAZINE 25 MG TABLET PO SCH ×4 (10:02→21:00)
[2020-09-23] MEDS: PANTOPRAZOLE 40 MG VIAL IV SCH ×2 (10:02→20:57)
[2020-09-24] MEDS: ALBUTEROL/IPRATROPIUM 3 ML NEB RESP TX SCH ×4 (00:39→19:05)
[2020-09-24 04:22] LABS: Basophils # 0.1 10*3/uL (0.0-0.2); Basophils % 0.6 % (0.0-0.8); Eosinophils # 0.1 10*3/uL (0.0-0.87); Eosinophils % 0.5 % (0.00-10.9); Hematocrit 25.7 VOL% (42.0-52.0); Hemoglobin 8.2 GM/DL (14.0-18.0); Immature Granulocytes % 0.6 %; Immature Granulocytes Absolute 0.08 #; Lymphocytes # 1.1 10*3/uL (1.4-4.0); Mean Corpuscular HGB Conc 31.9 GM/DL (32-36); Mean Corpuscular Volume 91.8 FL (87-102); Mean Platelet Volume 9.7 FL (9.6-12.0); Monocytes % 15.3 % (1.7-12.7); Platelet Count 522 T/CUMM (130-400); Red Cell Distribution Width 14.4 % (9.3-17.3); White Blood Count 13.3 T/CUMM (4-12)
[2020-09-24 04:40] LABS: Calcium 8.5 MG/DL (8.5-10.1); Osmolality,Calculated 290.7 MOS/KG (273-304)
[2020-09-24] MEDS: ACETAMINOPHEN 325 MG TABLET PO PRN (08:05)
[2020-09-24] MEDS: hydrALAZINE 25 MG TABLET PO SCH ×4 (08:05→20:07)
[2020-09-24] MEDS: amLODIPine 10 MG TABLET PO SCH (08:05)
[2020-09-24] MEDS: SEVELAMER CARBONATE POWDER 2.4 GM PACK PO SCH ×3 (08:05→17:13)
[2020-09-24] MEDS: ISOSORBIDE MONONITRATE 30 MG TABLET PO SCH (08:05)
[2020-09-24] MEDS: carvediloL 3.125 MG TABLET PO SCH ×2 (08:06→20:07)
[2020-09-24] MEDS: ASPIRIN CHEW 81 MG TABLET PO SCH (08:06)
[2020-09-24] MEDS: MENTHOL/ZINC OXIDE OINT 71 GM JAR TOP SCH ×2 (08:06→20:07)
[2020-09-24] MEDS: PANTOPRAZOLE 40 MG VIAL IV SCH ×2 (08:06→20:03)
[2020-09-24] MEDS ORDERED: ALBUTEROL/IPRATROPIUM 3 ML NEB RESP TX PRN (08:30)
[2020-09-24] MEDS ORDERED: LEVOFLOXACIN INJ 250 MG in PREMIX 1 EACH IV SCH (10:30)
[2020-09-24 14:17] LABS: Bilirubin,Urine Negative (Negative); Blood, Urine Negative (Negative); Glucose,Urine (UA) 50 mg/dL (Negative); Ketones,Urine Negative (Negative); Nitrite,Urine Negative (Negative); Protein,Urine 100 MG/DL; RBC,Urine <1 /HPF (0-4); Urine Appearance CLEAR (Clear); Urine Color Yellow (Yellow); Urine Specific Gravity 1.012 (1.001-1.035); Urine Urobilinogen < 2.0 EU/DL (0.2-1.0); WBC,Urine 2 /HPF (0-6)
[2020-09-25] MEDS: ALBUTEROL/IPRATROPIUM 3 ML NEB RESP TX SCH ×4 (01:15→19:26)
[2020-09-25 04:26] LABS: ABG Oxygen Saturation 98.4 % (95-100); ABG PCO2 38.7 MM HG (35-48); ABG PH 7.462 (7.35-7.45); ABG PO2 126.3 MM HG (80-95); ABG TCO2 28.2 MMOL/L (23-27); Allen Test Positive
[2020-09-25 05:46] LABS: Basophils # 0.1 10*3/uL (0.0-0.2); Basophils % 0.5 % (0.0-0.8); Eosinophils # 0.2 10*3/uL (0.0-0.87); Eosinophils % 1.2 % (0.00-10.9); Hematocrit 24.4 VOL% (42.0-52.0); Hemoglobin 7.8 GM/DL (14.0-18.0); Immature Granulocytes % 1.1 %; Immature Granulocytes Absolute 0.14 #; Lymphocytes # 1.2 10*3/uL (1.4-4.0); Lymphocytes % 9.3 % (21.2-54.2); Mean Corpuscular Volume 92.1 FL (87-102); Monocytes % 16.7 % (1.7-12.7); Neutrophils % 71.2 % (38.7-73.9); Platelet Count 545 T/CUMM (130-400); Red Blood Count 2.65 MC/CUMM (3.8-5.5); Red Cell Distribution Width 14.6 % (9.3-17.3)
[2020-09-25 06:02] LABS: Calcium 8.3 MG/DL (8.5-10.1); Osmolality,Calculated 302.3 MOS/KG (273-304)
[2020-09-25 06:04] LABS: Albumin 1.6 G/DL (3.4-5.0); Bilirubin,Total 0.6 MG/DL (0.2-1.0); Calcium 8.5 MG/DL (8.5-10.1); Osmolality,Calculated 299.5 MOS/KG (273-304); Total Protein 6.2 G/DL (6.4-8.3); Uric Acid 5.7 MG/DL (3.5-7.2)
[2020-09-25 06:16] LABS: Lymphocytes 6 % (20-55); Segmented Neutrophils 86 % (50-85); Total Cells Counted 100
[2020-09-25 06:17] LABS: Hypochromasia 2+; Microcytosis 1+; Ovalocytes Slight; Platelet Estimate Increased
[2020-09-25] MEDS: SEVELAMER CARBONATE POWDER 2.4 GM PACK PO SCH ×3 (08:46→17:29)
[2020-09-25] MEDS: SCOPOLAMINE 1.5 MG PATCH TRANSDERM SCH (08:47)
[2020-09-25] MEDS: carvediloL 3.125 MG TABLET PO SCH ×2 (08:49→21:38)
[2020-09-25] MEDS: ISOSORBIDE MONONITRATE 30 MG TABLET PO SCH (08:49)
[2020-09-25] MEDS: ASPIRIN CHEW 81 MG TABLET PO SCH (08:49)
[2020-09-25] MEDS: amLODIPine 10 MG TABLET PO SCH (08:49)
[2020-09-25] MEDS: hydrALAZINE 25 MG TABLET PO SCH ×4 (08:49→21:38)
[2020-09-25] MEDS: MENTHOL/ZINC OXIDE OINT 71 GM JAR TOP SCH ×2 (08:49→21:37)
[2020-09-25] MEDS: PANTOPRAZOLE 40 MG VIAL IV SCH ×2 (08:50→21:37)
[2020-09-25] MEDS ORDERED: TUBERCULIN SKIN TEST 0.1 ML SYRINGE INTRADERM ONE ×2 (11:00→12:00)
[2020-09-26] MEDS: ALBUTEROL/IPRATROPIUM 3 ML NEB RESP TX SCH ×4 (01:47→19:40)
[2020-09-26 05:47] LABS: Basophils # 0.1 10*3/uL (0.0-0.2); Basophils % 0.5 % (0.0-0.8); Eosinophils # 0.1 10*3/uL (0.0-0.87); Eosinophils % 0.8 % (0.00-10.9); Hematocrit 26.8 VOL% (42.0-52.0); Hemoglobin 8.6 GM/DL (14.0-18.0); Immature Granulocytes % 0.9 %; Immature Granulocytes Absolute 0.14 #; Lymphocytes # 1.5 10*3/uL (1.4-4.0); Lymphocytes % 9.6 % (21.2-54.2); Mean Corpuscular HGB Conc 32.1 GM/DL (32-36); Mean Corpuscular Volume 91.5 FL (87-102); Mean Platelet Volume 9.9 FL (9.6-12.0); Monocytes % 14.2 % (1.7-12.7); Platelet Count 588 T/CUMM (130-400); Red Blood Count 2.93 MC/CUMM (3.8-5.5); Red Cell Distribution Width 14.4 % (9.3-17.3)
[2020-09-26 05:57] LABS: INR 1.1; PT Patient Result 11.8 SECS (9.8-11.9)
[2020-09-26 06:13] LABS: Calcium 8.9 MG/DL (8.5-10.1); Osmolality,Calculated 288.8 MOS/KG (273-304)
[2020-09-26] MEDS ORDERED: ceFAZolin 1,000 MG in SYRINGE 1 EACH IV ONE (08:00)
[2020-09-26] MEDS: SEVELAMER CARBONATE POWDER 2.4 GM PACK PO SCH ×3 (09:36→16:18)
[2020-09-26] MEDS: MENTHOL/ZINC OXIDE OINT 71 GM JAR TOP SCH ×2 (09:43→21:25)
[2020-09-26] MEDS: carvediloL 3.125 MG TABLET PO SCH ×2 (09:43→21:25)
[2020-09-26] MEDS: ISOSORBIDE MONONITRATE 30 MG TABLET PO SCH (09:43)
[2020-09-26] MEDS: amLODIPine 10 MG TABLET PO SCH (09:43)
[2020-09-26] MEDS: PANTOPRAZOLE 40 MG VIAL IV SCH ×2 (09:53→21:25)
[2020-09-26] MEDS: hydrALAZINE 25 MG TABLET PO SCH ×4 (09:53→21:25)
[2020-09-26] MEDS: SODIUM CHLORIDE 0.9% 1,000 ML IV SCH (10:23)
[2020-09-26] MEDS ORDERED: LIDOCAINE 2% 5 ML VIAL ONE (11:32)
[2020-09-26] MEDS ORDERED: propofoL 200 MG/20 ML VIAL IV ONE (11:32)
[2020-09-26] MEDS ORDERED: ETOMIDATE 20 MG/10 ML VIAL IV ONE (11:32)
[2020-09-26] MEDS: LEVOFLOXACIN INJ 500 MG in PREMIX 1 EACH IV SCH (12:41)
[2020-09-27] MEDS: ALBUTEROL/IPRATROPIUM 3 ML NEB RESP TX SCH ×4 (00:58→19:38)
[2020-09-27] MEDS ORDERED: DEXTROSE 50% 25 GM/50 ML VIAL IV PRN (01:15)
[2020-09-27] MEDS: PANTOPRAZOLE 40 MG VIAL IV SCH ×2 (11:41→21:21)
[2020-09-27] MEDS: hydrALAZINE 25 MG TABLET PO SCH ×4 (11:42→21:02)
[2020-09-27] MEDS: carvediloL 3.125 MG TABLET PO SCH ×2 (11:42→21:20)
[2020-09-27] MEDS: ISOSORBIDE MONONITRATE 30 MG TABLET PO SCH (11:42)
[2020-09-27] MEDS: amLODIPine 10 MG TABLET PO SCH (11:42)
[2020-09-27] MEDS: SEVELAMER CARBONATE POWDER 2.4 GM PACK PO SCH ×3 (12:51→18:00)
[2020-09-27] MEDS: MENTHOL/ZINC OXIDE OINT 71 GM JAR TOP SCH ×2 (12:51→21:20)
[2020-09-27] MEDS ORDERED: ETOMIDATE 40 MG/20 ML VIAL IV ONE (14:30)
[2020-09-27] MEDS ORDERED: ROCURONIUM 100 MG/10 ML VIAL IV ONE (14:30)
[2020-09-27 14:47] LABS: ABG Base Excess 2.7 MMOL/L (-2.5-2.5); ABG HCO3 26.8 MMOL/L (20-26); ABG Oxygen Saturation 86.8 % (95-100); ABG PCO2 39.2 MM HG (35-48); ABG PH 7.453 (7.35-7.45); ABG PO2 56.1 MM HG (80-95)
[2020-09-27] MEDS ORDERED: NOREPINEPHRINE 4 MG/4 ML VIAL IV ONE (14:52)
[2020-09-27] MEDS: NOREPINEPHRINE 8 MG in SODIUM CHLORIDE 0.9% 242 ML IV PRN (14:57)
[2020-09-27 15:26] LABS: Basophils # 0.1 10*3/uL (0.0-0.2); Basophils % 0.5 % (0.0-0.8); Eosinophils # 0.1 10*3/uL (0.0-0.87); Eosinophils % 0.5 % (0.00-10.9); Hemoglobin 9.2 GM/DL (14.0-18.0); Immature Granulocytes % 0.9 %; Immature Granulocytes Absolute 0.16 #; Lymphocytes # 1.1 10*3/uL (1.4-4.0); Lymphocytes % 5.8 % (21.2-54.2); Mean Corpuscular HGB Conc 30.7 GM/DL (32-36); Mean Corpuscular Volume 97.1 FL (87-102); Mean Platelet Volume 10.1 FL (9.6-12.0); Monocytes % 5.6 % (1.7-12.7); Neutrophils % 86.7 % (38.7-73.9); Platelet Count 725 T/CUMM (130-400); Red Blood Count 3.09 MC/CUMM (3.8-5.5); Red Cell Distribution Width 14.3 % (9.3-17.3); White Blood Count 18.3 T/CUMM (4-12)
[2020-09-27 15:34] LABS: Calcium 9.4 MG/DL (8.5-10.1); Osmolality,Calculated 280.1 MOS/KG (273-304)
[2020-09-27 15:56] LABS: Bilirubin,Urine Negative (Negative); Blood, Urine Negative (Negative); Glucose,Urine (UA) Negative (Negative); Hyaline Casts,Urine 3 /LPF (0-3); Ketones,Urine Negative (Negative); Mucus,Urine Occasional /LPF (Occasional); Nitrite,Urine Negative (Negative); Protein,Urine 100 MG/DL; RBC,Urine 1 /HPF (0-4); Squamous Epithelial Cell,Urine Occasional /HPF (0-10); Urine Appearance CLEAR (Clear); Urine Color Yellow (Yellow); Urine Specific Gravity 1.013 (1.001-1.035); Urine Urobilinogen < 2.0 EU/DL (0.2-1.0); WBC,Urine 2 /HPF (0-6)
[2020-09-27] MEDS: CLINDAMYCIN INJ 600 MG in PREMIX 1 EACH IV SCH ×2 (16:15→23:54)
[2020-09-27] MEDS: ACETAMINOPHEN 325 MG TABLET PO PRN (16:48)
[2020-09-27] MEDS ORDERED: SODIUM POLYSTYRENE SULFATE 15 GM/60 ML BOTTLE PO STA (17:25)
[2020-09-27] MEDS: SODIUM CHLORIDE 0.9% 1,000 ML IV SCH (21:03)
[2020-09-28] MEDS: ALBUTEROL/IPRATROPIUM 3 ML NEB RESP TX SCH ×4 (00:55→19:19)
[2020-09-28] MEDS: ACETYLCYSTEINE 20% 800 MG/4 ML VIAL RESP TX SCH ×4 (00:55→23:58)
[2020-09-28] MEDS: NOREPINEPHRINE 8 MG in SODIUM CHLORIDE 0.9% 242 ML IV PRN (02:19)
[2020-09-28] MEDS: ACETAMINOPHEN 325 MG TABLET PO PRN (04:21)
[2020-09-28 04:41] LABS: Basophils # 0.2 10*3/uL (0.0-0.2); Basophils % 0.8 % (0.0-0.8); Eosinophils # 0.1 10*3/uL (0.0-0.87); Eosinophils % 0.6 % (0.00-10.9); Hematocrit 25.2 VOL% (42.0-52.0); Hemoglobin 7.7 GM/DL (14.0-18.0); Immature Granulocytes % 1.8 %; Immature Granulocytes Absolute 0.42 #; Lymphocytes # 1.2 10*3/uL (1.4-4.0); Lymphocytes % 4.9 % (21.2-54.2); Mean Corpuscular HGB Conc 30.6 GM/DL (32-36); Mean Corpuscular Volume 95.5 FL (87-102); Mean Platelet Volume 10.1 FL (9.6-12.0); Monocytes % 8.3 % (1.7-12.7); Neutrophils % 83.6 % (38.7-73.9); Platelet Count 660 T/CUMM (130-400); Red Blood Count 2.64 MC/CUMM (3.8-5.5); Red Cell Distribution Width 14.3 % (9.3-17.3); White Blood Count 23.9 T/CUMM (4-12)
[2020-09-28 05:05] LABS: Calcium 8.9 MG/DL (8.5-10.1); Osmolality,Calculated 286.8 MOS/KG (273-304)
[2020-09-28 05:07] LABS: ABG HCO3 25.7 MMOL/L (20-26); ABG Oxygen Saturation 99.5 % (95-100); ABG PCO2 36.1 MM HG (35-48); ABG PO2 503.3 MM HG (80-95); ABG TCO2 26.8 MMOL/L (23-27); Allen Test Positive; Pt O2 Delivery Device Ventilator
[2020-09-28 05:50] LABS: Anisocytosis Slight; Band Neutrophils 3 % (0-10); Eosinophils 1 % (0-10); Lymphocytes 8 % (20-55); Platelet Estimate Increased; Segmented Neutrophils 77 % (50-85); Total Cells Counted 100
[2020-09-28 05:51] LABS: Macrocytosis Slight
[2020-09-28] MEDS: PANTOPRAZOLE 40 MG VIAL IV SCH ×2 (09:01→21:47)
[2020-09-28] MEDS: CLINDAMYCIN INJ 600 MG in PREMIX 1 EACH IV SCH ×3 (09:01→22:31)
[2020-09-28] MEDS: SCOPOLAMINE 1.5 MG PATCH TRANSDERM SCH (09:02)
[2020-09-28] MEDS: SEVELAMER CARBONATE POWDER 2.4 GM PACK PO SCH ×3 (09:14→16:51)
[2020-09-28] MEDS: hydrALAZINE 25 MG TABLET PO SCH ×4 (09:16→21:46)
[2020-09-28] MEDS: ISOSORBIDE MONONITRATE 30 MG TABLET PO SCH (09:16)
[2020-09-28] MEDS: carvediloL 3.125 MG TABLET PO SCH ×2 (09:16→21:47)
[2020-09-28] MEDS: amLODIPine 10 MG TABLET PO SCH (09:16)
[2020-09-28] MEDS: MENTHOL/ZINC OXIDE OINT 71 GM JAR TOP SCH ×2 (09:17→21:47)
[2020-09-28] MEDS: LEVOFLOXACIN INJ 500 MG in PREMIX 1 EACH IV SCH (11:25)
[2020-09-28] MEDS: SULFAMETH/TRIMETH INJ 160 MG in DEXTROSE 5% 250 ML IV SCH ×2 (16:17→21:46)
[2020-09-29] MEDS: ALBUTEROL/IPRATROPIUM 3 ML NEB RESP TX SCH ×2 (00:07→07:20)
[2020-09-29] MEDS: SULFAMETH/TRIMETH INJ 160 MG in DEXTROSE 5% 250 ML IV SCH ×2 (03:29→10:22)
[2020-09-29 04:24] LABS: ABG Base Excess 0.9 MMOL/L (-2.5-2.5); ABG Oxygen Saturation 97.1 % (95-100); ABG PH 7.447 (7.35-7.45); ABG PO2 97.4 MM HG (80-95); ABG TCO2 26.1 MMOL/L (23-27); Allen Test Positive
[2020-09-29 05:58] LABS: Basophils # 0.1 10*3/uL (0.0-0.2); Basophils % 0.5 % (0.0-0.8); Eosinophils # 0.3 10*3/uL (0.0-0.87); Eosinophils % 1.7 % (0.00-10.9); Hematocrit 24.3 VOL% (42.0-52.0); Hemoglobin 7.6 GM/DL (14.0-18.0); Immature Granulocytes % 0.9 %; Immature Granulocytes Absolute 0.16 #; Lymphocytes # 1.1 10*3/uL (1.4-4.0); Lymphocytes % 5.7 % (21.2-54.2); Mean Corpuscular HGB Conc 31.3 GM/DL (32-36); Mean Corpuscular Volume 94.9 FL (87-102); Mean Platelet Volume 10.2 FL (9.6-12.0); Monocytes % 9.6 % (1.7-12.7); Neutrophils % 81.6 % (38.7-73.9); Platelet Count 509 T/CUMM (130-400); Red Blood Count 2.56 MC/CUMM (3.8-5.5); Red Cell Distribution Width 14.3 % (9.3-17.3); White Blood Count 18.7 T/CUMM (4-12)
[2020-09-29 05:59] LABS: Albumin 1.7 G/DL (3.4-5.0); Bilirubin,Direct 0.37 MG/DL (0.0-0.20); Bilirubin,Indirect 0.7 MG/DL (0.0-1.0); Bilirubin,Total 1.1 MG/DL (0.2-1.0); Osmolality,Calculated 299.4 MOS/KG (273-304)
[2020-09-29] MEDS: ACETYLCYSTEINE 20% 800 MG/4 ML VIAL RESP TX SCH (07:20)
[2020-09-29] MEDS: SEVELAMER CARBONATE POWDER 2.4 GM PACK PO SCH (10:21)
[2020-09-29] MEDS: hydrALAZINE 25 MG TABLET PO SCH (10:21)
[2020-09-29] MEDS: CLINDAMYCIN INJ 600 MG in PREMIX 1 EACH IV SCH (10:21)
[2020-09-29] MEDS: MENTHOL/ZINC OXIDE OINT 71 GM JAR TOP SCH (10:22)
[2020-09-29] MEDS: ISOSORBIDE MONONITRATE 30 MG TABLET PO SCH (10:22)
[2020-09-29] MEDS: carvediloL 3.125 MG TABLET PO SCH (10:22)
[2020-09-29] MEDS: amLODIPine 10 MG TABLET PO SCH (10:23)
[2020-09-29] MEDS: PANTOPRAZOLE 40 MG VIAL IV SCH (10:23)
[2020-09-29] MEDS: MORPHINE 4 MG/1 ML VIAL IV PRN (11:42)
[2020-09-30] MEDS: MORPHINE 4 MG/1 ML VIAL IV PRN (06:14)
[2020-09-30] MEDS: LORazepam 2 MG/1 ML VIAL IV PRN ×2 (08:06→10:30)
[2020-09-30 16:51] VITALS: BP 149/72
== END 2020-09-30 15:35 | disposition hospice, inpatient (51) | DRG 870 ==
LOC: EDUNIT# → EDBD → N.ED 17:49 → SUATTDRO 20:05 → N.EDINP 20:05 → N.ICU 21:49 → N.3E 09-25 18:37 → N.ICU 09-27 14:22 → N.5E 09-28 17:18
PROVIDERS: ADMIT Family Medicine; ATTEND Family Medicine
PROC: EGDWPEG (ICD-10-PCS; 2020-09-26 11:05)

== ENCOUNTER 2020-09-30 15:36 | Inpatient (IN) ==
[2020-09-30] MEDS ORDERED: ACETAMINOPHEN 650 MG SUPP RECTAL PRN (16:19)
[2020-09-30] MEDS: LORazepam 2 MG/1 ML VIAL IV PRN (17:13)
[2020-09-30 22:31] VITALS: BP 131/66
[2020-10-01] MEDS: LORazepam 2 MG/1 ML VIAL IV PRN ×3 (15:12→23:13)
[2020-10-01] MEDS: MORPHINE 4 MG/1 ML VIAL IV PRN ×2 (19:36→21:41)
[2020-10-02] MEDS: MORPHINE 4 MG/1 ML VIAL IV PRN ×2 (00:25→06:10)
[2020-10-02] MEDS: LORazepam 2 MG/1 ML VIAL IV PRN (02:18)
== END 2020-10-02 08:40 | disposition expired | DRG 951 ==
LOC: N.5E 15:36 → N.4E 17:51
PROVIDERS: ADMIT Internal Medicine; ATTEND Internal Medicine